=== PATIENT | male | born 1970 | race Caucasian/White ===

== ENCOUNTER 2018-01-18 10:13 | Inpatient (IN) | payer OTHER ==
[2018-01-18] MEDS ORDERED: DEXTROSE 50% 50 ML SYRINGE IV ×2 (11:30)
[2018-01-18] MEDS ORDERED: GLUCOSE GEL 15 GRAM TUBE PO ×2 (11:30)
[2018-01-18] MEDS ORDERED: GLUCOSE GEL 15 GRAM TUBE BUCCAL (11:30)
[2018-01-18] MEDS ORDERED: GLUCAGON 1 MG INJ IM (11:30)
[2018-01-18] MEDS: OXYCODONE/ACETAMINOPHEN (10/325) TAB PO (11:36)
[2018-01-18] MEDS: INSULIN GLARGINE [LANTus] (100 UNITS/ML) SYG SC ×2 (13:03→20:32)
[2018-01-18] MEDS: GABAPENTIN 100 MG CAP PO ×2 (13:50→20:23)
[2018-01-18] MEDS: INSULIN ASPART [NOVOLOG] 3 ML PEN SC ×3 (13:50→20:33)
[2018-01-18] MEDS: COLLAGENASE 5 GM (UD JAR) TOP (13:51)
[2018-01-18] MEDS: HYDROmorphONE 0.5 MG/0.5 ML SYG IV ×3 (13:57→20:16)
[2018-01-18 14:11] LABS: ADD MAN DIFF? NO
[2018-01-18 14:16] LABS: WHITE BLOOD COUNT 11.4 10^3/ul (4.8-10.8)
[2018-01-18 14:16] LABS: BASOPHIL # 0.1 10^3/ul (0.0-0.1); BASOPHILS % 0.9 % (0.0-2.0); EOSINOPHILS # 0.4 10^3/ul (0.0-0.5); EOSINOPHILS % 3.1 % (0.0-7.0); HEMOGLOBIN 15.8 g/dl (14.0-18.0); LYMPHOCYTES # 3.2 10^3/ul (0.8-2.9); LYMPHOCYTES % 27.7 % (15.0-51.0); MEAN CORPUSCULAR HEMOGLOBIN 29.9 pg (29.0-33.0); MEAN CORPUSCULAR HGB CONC 33.6 g/dl (32.0-37.0); MEAN CORPUSCULAR VOLUME 88.8 fl (82.0-101.0); MEAN PLATELET VOLUME 11.8 fl (7.4-10.4); MONOCYTE # 0.9 10^3/ul (0.3-0.9); MONOCYTES % 7.7 % (0.0-11.0); NEUTROPHIL # 6.8 10^3/ul (1.6-7.5); NEUTROPHILS % 60.1 % (39.0-77.0); PLATELET COUNT 311 10^3/UL (140-415); RED BLOOD COUNT 5.29 10^6/ul (4.70-6.10); RED CELL DISTRIBUTION WIDTH 12.6 % (11.5-14.5)
[2018-01-18] MEDS ORDERED: VANCOMYCIN IV PER PHARMACY XX (14:30)
[2018-01-18 14:31] LABS: ALANINE AMINOTRANSFERASE 60 IU/L (13-69); ALBUMIN 4.1 g/dl (3.3-4.9); ALKALINE PHOSPHATASE 91 IU/L (42-121); ANION GAP 15 (5-13); ASPARTATE AMINO TRANSFERASE 53 IU/L (15-46); BILIRUBIN,INDIRECT 0.3 mg/dl (0-1.1); BILIRUBIN,TOTAL 0.3 mg/dl (0.2-1.3); BLOOD UREA NITROGEN 17 mg/dl (7-20); CARBON DIOXIDE 25 mmol/L (21-31); CHLORIDE 98 mmol/L (97-110); CREATININE 1.07 mg/dl (0.61-1.24); Estimated GFR > 60 mL/min (>60); GLUCOSE 366 mg/dl (70-220); PHOSPHORUS 4.3 mg/dl (2.5-4.9); POTASSIUM 4.3 mmol/L (3.5-5.1); SODIUM 138 mmol/L (135-144); TOTAL PROTEIN 7.1 g/dl (6.1-8.1)
[2018-01-18 14:34] LABS: C-REACTIVE PROTEIN 1.6 mg/dl (0.0-0.9)
[2018-01-18 14:37] LABS: HEMOGLOBIN A1C 11.4 % (0-5.9)
[2018-01-18 15:20] LABS: ERYTHROCYTE SEDIMENTATION RATE 10 mm/Hr (0-15)
[2018-01-18] MEDS ORDERED: INSULIN ASPART [NOVOLOG] 3 ML PEN SC (18:05)
[2018-01-18] MEDS: DIPHENHYDRAMINE 50 MG CAP PO (18:26)
[2018-01-18] MEDS: VANCOMYCIN 2 GM in SOD CHLORIDE 0.9% 500 ML IVPB (18:26)
[2018-01-18] MEDS ORDERED: DIPHENHYDRAMINE 2%/ZINC 28.4 GM CR TOP (18:30)
[2018-01-18] MEDS: KETOROLAC 30 MG INJ IV (18:40)
[2018-01-18] MEDS: BENAZEPRIL 20 MG TAB PO (20:21)
[2018-01-18] MEDS: HYDROCHLOROTHIAZIDE 12.5 MG CAP PO (20:23)
[2018-01-18] MEDS: METOPROLOL 25 MG TAB PO (20:23)
[2018-01-18] MEDS: ATORVASTATIN 40 MG TAB PO (20:23)
[2018-01-18] MEDS: CEFEPIME 1GM/50 ML (PMX) 50 ML IVPB (20:30)
[2018-01-18] MEDS: DIPHENHYDRAMINE 50 MG INJ IV (21:08)
[2018-01-19] MEDS: HYDROmorphONE 0.5 MG/0.5 ML SYG IV ×6 (02:02→20:55)
[2018-01-19 05:15] LABS: ADD MAN DIFF? NO
[2018-01-19 05:19] LABS: WHITE BLOOD COUNT 11.3 10^3/ul (4.8-10.8)
[2018-01-19 05:19] LABS: BASOPHIL # 0.1 10^3/ul (0.0-0.1); BASOPHILS % 0.9 % (0.0-2.0); EOSINOPHILS # 0.5 10^3/ul (0.0-0.5); EOSINOPHILS % 4.3 % (0.0-7.0); HEMOGLOBIN 15.5 g/dl (14.0-18.0); LYMPHOCYTES # 2.4 10^3/ul (0.8-2.9); LYMPHOCYTES % 21.6 % (15.0-51.0); MEAN CORPUSCULAR HEMOGLOBIN 29.4 pg (29.0-33.0); MEAN CORPUSCULAR HGB CONC 32.3 g/dl (32.0-37.0); MEAN CORPUSCULAR VOLUME 91.1 fl (82.0-101.0); MEAN PLATELET VOLUME 11.5 fl (7.4-10.4); MONOCYTE # 0.9 10^3/ul (0.3-0.9); MONOCYTES % 8.2 % (0.0-11.0); NEUTROPHIL # 7.3 10^3/ul (1.6-7.5); NEUTROPHILS % 64.4 % (39.0-77.0); PLATELET COUNT 296 10^3/UL (140-415); RED BLOOD COUNT 5.27 10^6/ul (4.70-6.10); RED CELL DISTRIBUTION WIDTH 12.9 % (11.5-14.5)
[2018-01-19] MEDS: OXYCODONE/ACETAMINOPHEN (10/325) TAB PO ×2 (05:37→14:27)
[2018-01-19] MEDS: VANCOMYCIN 1.25 GM in SOD CHLORIDE 0.9% 250 ML IVPB ×2 (05:38→17:59)
[2018-01-19 05:39] LABS: ANION GAP 9 (5-13); BLOOD UREA NITROGEN 25 mg/dl (7-20); CALCIUM 9.2 mg/dl (8.4-10.2); CARBON DIOXIDE 27 mmol/L (21-31); CHLORIDE 103 mmol/L (97-110); CHOL/HDL RATIO 7.4 RATIO; CHOLESTEROL 179 mg/dl (100-200); CREATININE 1.18 mg/dl (0.61-1.24); Estimated GFR > 60 mL/min (>60); GLUCOSE 261 mg/dl (70-220); HDL CHOLESTEROL 24 mg/dl (27-67); LDL CHOLESTEROL,CALCULATED 102 mg/dl; POTASSIUM 5.1 mmol/L (3.5-5.1); SODIUM 139 mmol/L (135-144); TRIGLYCERIDES 264 mg/dl (0-149)
[2018-01-19] MEDS: DIPHENHYDRAMINE 50 MG INJ IV (07:39)
[2018-01-19] MEDS: INSULIN GLARGINE [LANTus] (100 UNITS/ML) SYG SC ×2 (08:16→20:58)
[2018-01-19] MEDS: INSULIN ASPART [NOVOLOG] 3 ML PEN SC ×6 (08:16→20:59)
[2018-01-19] MEDS: HYDROCHLOROTHIAZIDE 12.5 MG CAP PO ×2 (09:29→20:56)
[2018-01-19] MEDS: ASCORBIC ACID 500 MG TAB PO (09:29)
[2018-01-19] MEDS: GABAPENTIN 100 MG CAP PO ×3 (09:29→21:02)
[2018-01-19] MEDS: CELECOXIB 200 MG CAP PO (09:29)
[2018-01-19] MEDS: BENAZEPRIL 20 MG TAB PO ×2 (09:29→20:56)
[2018-01-19] MEDS: AMLODIPINE 5 MG TAB PO (09:30)
[2018-01-19] MEDS: ASPIRIN (EC) 81 MG TAB PO (09:30)
[2018-01-19] MEDS: METOPROLOL 25 MG TAB PO ×2 (09:30→20:57)
[2018-01-19] MEDS: ZINC SULFATE 220 MG CAP PO (09:30)
[2018-01-19] MEDS: SODIUM HYPOCHLORITE (1/40) 1 APPLIC BTL IRR (09:31)
[2018-01-19] MEDS: COLLAGENASE 5 GM (UD JAR) TOP (09:31)
[2018-01-19] MEDS: CEFEPIME 1GM/50 ML (PMX) 50 ML IVPB ×2 (10:31→20:54)
[2018-01-19] MEDS: ACCU-CHEK XX ×3 (11:01→21:00)
[2018-01-19] MEDS: LINAGLIPTIN 5 MG TABLET PO (11:37)
[2018-01-19] MEDS: LIDOCAINE 4% CR TOP (15:45)
[2018-01-19] MEDS: CYCLOBENZAPRINE 10 MG TAB PO (19:37)
[2018-01-19] MEDS: ATORVASTATIN 40 MG TAB PO (20:56)
[2018-01-19] MEDS: ATORVASTATIN 20 MG TAB PO (21:01)
[2018-01-20] MEDS: ACCU-CHEK XX ×4 (00:15→17:00)
[2018-01-20] MEDS: INSULIN GLARGINE [LANTus] (100 UNITS/ML) SYG SC ×2 (00:15→08:11)
[2018-01-20] MEDS: DEXTROSE 5%-0.45% NACL 1,000 ML IV (01:24)
[2018-01-20] MEDS: HYDROmorphONE 0.5 MG/0.5 ML SYG IV ×5 (01:25→17:58)
[2018-01-20] MEDS: INSULIN ASPART [NOVOLOG] 3 ML PEN SC ×8 (01:27→16:59)
[2018-01-20 05:07] LABS: ADD MAN DIFF? NO
[2018-01-20 05:14] LABS: BASOPHIL # 0.1 10^3/ul (0.0-0.1); BASOPHILS % 0.9 % (0.0-2.0); EOSINOPHILS # 0.4 10^3/ul (0.0-0.5); EOSINOPHILS % 4.4 % (0.0-7.0); HEMATOCRIT 46.4 % (42.0-52.0); HEMOGLOBIN 15.2 g/dl (14.0-18.0); LYMPHOCYTES # 2.5 10^3/ul (0.8-2.9); LYMPHOCYTES % 25.5 % (15.0-51.0); MEAN CORPUSCULAR HEMOGLOBIN 29.3 pg (29.0-33.0); MEAN CORPUSCULAR HGB CONC 32.8 g/dl (32.0-37.0); MEAN CORPUSCULAR VOLUME 89.6 fl (82.0-101.0); MEAN PLATELET VOLUME 11.3 fl (7.4-10.4); MONOCYTE # 0.7 10^3/ul (0.3-0.9); MONOCYTES % 7.5 % (0.0-11.0); NEUTROPHILS % 61.2 % (39.0-77.0); PLATELET COUNT 286 10^3/UL (140-415); RED BLOOD COUNT 5.18 10^6/ul (4.70-6.10); RED CELL DISTRIBUTION WIDTH 12.8 % (11.5-14.5)
[2018-01-20 05:14] LABS: WHITE BLOOD COUNT 9.9 10^3/ul (4.8-10.8)
[2018-01-20 05:28] LABS: ANION GAP 9 (5-13); BLOOD UREA NITROGEN 25 mg/dl (7-20); CALCIUM 8.9 mg/dl (8.4-10.2); CARBON DIOXIDE 24 mmol/L (21-31); CHLORIDE 103 mmol/L (97-110); CREATININE 1.03 mg/dl (0.61-1.24); Estimated GFR > 60 mL/min (>60); GLUCOSE 325 mg/dl (70-220); POTASSIUM 4.5 mmol/L (3.5-5.1); SODIUM 136 mmol/L (135-144)
[2018-01-20] MEDS: VANCOMYCIN 1.25 GM in SOD CHLORIDE 0.9% 250 ML IVPB ×2 (05:40→18:15)
[2018-01-20] MEDS: SOD CHLORIDE 0.9% 1,000 ML IV ×3 (07:10→19:25)
[2018-01-20] MEDS: ASPIRIN (EC) 81 MG TAB PO (08:12)
[2018-01-20] MEDS: GABAPENTIN 300 MG CAP PO ×2 (08:12→12:43)
[2018-01-20] MEDS: ZINC SULFATE 220 MG CAP PO (08:13)
[2018-01-20] MEDS: LINAGLIPTIN 5 MG TABLET PO (08:13)
[2018-01-20] MEDS: CELECOXIB 200 MG CAP PO (08:13)
[2018-01-20] MEDS: ASCORBIC ACID 500 MG TAB PO (08:13)
[2018-01-20] MEDS: OXYCODONE/ACETAMINOPHEN (10/325) TAB PO ×2 (08:13→16:15)
[2018-01-20] MEDS: HYDROCHLOROTHIAZIDE 12.5 MG CAP PO (08:14)
[2018-01-20] MEDS: BENAZEPRIL 20 MG TAB PO (08:14)
[2018-01-20] MEDS: METOPROLOL 25 MG TAB PO (08:15)
[2018-01-20] MEDS: AMLODIPINE 5 MG TAB PO (08:15)
[2018-01-20] MEDS ORDERED: GABAPENTIN 100 MG CAP PO (09:00)
[2018-01-20] MEDS ORDERED: INSULIN GLARGINE [LANTus] (100 UNITS/ML) SYG SC (09:00)
[2018-01-20] MEDS: CEFEPIME 1GM/50 ML (PMX) 50 ML IVPB (09:43)
[2018-01-20] MEDS: SODIUM HYPOCHLORITE (1/40) 1 APPLIC BTL IRR (09:44)
[2018-01-20] MEDS: COLLAGENASE 5 GM (UD JAR) TOP (09:44)
[2018-01-20 17:52] LABS: VANCOMYCIN,TROUGH 11.1 ug/ml (10.0-20.0)
[2018-01-20] MEDS: DIPHENHYDRAMINE 50 MG INJ IV (18:03)
[2018-01-20] MEDS ORDERED: METOCLOPRAMIDE 10 MG INJ (21:37)
[2018-01-20] MEDS ORDERED: ROPIVACAINE 0.5 % 30 ML VIAL (21:37)
[2018-01-20] MEDS ORDERED: ONDANSETRON 4 MG INJ (21:37)
[2018-01-20] MEDS ORDERED: MIDAZOLAM 1 MG/ML 2 ML INJ (21:37)
[2018-01-20] MEDS ORDERED: DIPHENHYDRAMINE 50 MG INJ IV (22:00)
[2018-01-20] MEDS ORDERED: HYDROmorphONE 1 MG/5 ML IV SYRINGE IV ×2 (22:00)
[2018-01-20] MEDS ORDERED: LABETALOL HCL 20MG INJ IV (22:00)
[2018-01-20] MEDS ORDERED: MEPERIDINE 25 MG INJ IV (22:00)
[2018-01-20] MEDS ORDERED: hydrALAzine 20 MG INJ IV (22:00)
[2018-01-20] MEDS: ONDANSETRON 4 MG INJ IV (23:20)
[2018-01-20] MEDS: HYDROmorphONE 1 MG/5 ML IV SYRINGE IV (23:21)
[2018-01-21] MEDS: CEFEPIME 1GM/50 ML (PMX) 50 ML IVPB ×3 (00:29→22:04)
[2018-01-21] MEDS: ATORVASTATIN 40 MG TAB PO (00:31)
[2018-01-21] MEDS: GABAPENTIN 300 MG CAP PO ×4 (00:31→21:04)
[2018-01-21] MEDS: BENAZEPRIL 20 MG TAB PO ×2 (00:31→08:22)
[2018-01-21] MEDS: METOPROLOL 25 MG TAB PO ×3 (00:31→21:11)
[2018-01-21] MEDS: ATORVASTATIN 20 MG TAB PO (00:32)
[2018-01-21] MEDS: ACCU-CHEK XX ×5 (02:00→21:00)
[2018-01-21] MEDS: HYDROmorphONE 0.5 MG/0.5 ML SYG IV ×2 (03:44→07:41)
[2018-01-21] MEDS: VANCOMYCIN 1.25 GM in SOD CHLORIDE 0.9% 250 ML IVPB ×2 (05:17→17:36)
[2018-01-21 05:22] LABS: ADD MAN DIFF? NO
[2018-01-21 05:25] LABS: WHITE BLOOD COUNT 13.2 10^3/ul (4.8-10.8)
[2018-01-21 05:25] LABS: BASOPHIL # 0.1 10^3/ul (0.0-0.1); BASOPHILS % 0.9 % (0.0-2.0); EOSINOPHILS # 0.5 10^3/ul (0.0-0.5); EOSINOPHILS % 3.7 % (0.0-7.0); HEMATOCRIT 47.9 % (42.0-52.0); HEMOGLOBIN 15.4 g/dl (14.0-18.0); LYMPHOCYTES # 2.8 10^3/ul (0.8-2.9); LYMPHOCYTES % 21.5 % (15.0-51.0); MEAN CORPUSCULAR HEMOGLOBIN 29.5 pg (29.0-33.0); MEAN CORPUSCULAR HGB CONC 32.2 g/dl (32.0-37.0); MEAN CORPUSCULAR VOLUME 91.8 fl (82.0-101.0); MEAN PLATELET VOLUME 11.5 fl (7.4-10.4); MONOCYTE # 1.1 10^3/ul (0.3-0.9); MONOCYTES % 8.5 % (0.0-11.0); NEUTROPHIL # 8.6 10^3/ul (1.6-7.5); NEUTROPHILS % 64.9 % (39.0-77.0); PLATELET COUNT 292 10^3/UL (140-415); RED BLOOD COUNT 5.22 10^6/ul (4.70-6.10); RED CELL DISTRIBUTION WIDTH 13.1 % (11.5-14.5)
[2018-01-21] MEDS: OXYCODONE/ACETAMINOPHEN (10/325) TAB PO ×2 (05:36→11:15)
[2018-01-21 05:46] LABS: ANION GAP 8 (5-13); BLOOD UREA NITROGEN 19 mg/dl (7-20); CALCIUM 8.7 mg/dl (8.4-10.2); CARBON DIOXIDE 26 mmol/L (21-31); CHLORIDE 106 mmol/L (97-110); CREATININE 1.08 mg/dl (0.61-1.24); Estimated GFR > 60 mL/min (>60); GLUCOSE 135 mg/dl (70-220); POTASSIUM 4.3 mmol/L (3.5-5.1); SODIUM 140 mmol/L (135-144)
[2018-01-21] MEDS: INSULIN ASPART [NOVOLOG] 3 ML PEN SC ×7 (08:01→20:55)
[2018-01-21] MEDS: CELECOXIB 200 MG CAP PO (08:05)
[2018-01-21] MEDS: COLLAGENASE 5 GM (UD JAR) TOP (08:06)
[2018-01-21] MEDS: ASPIRIN (EC) 81 MG TAB PO (08:09)
[2018-01-21] MEDS: ASCORBIC ACID 500 MG TAB PO (08:10)
[2018-01-21] MEDS: LINAGLIPTIN 5 MG TABLET PO (08:16)
[2018-01-21] MEDS: ZINC SULFATE 220 MG CAP PO (08:16)
[2018-01-21] MEDS: AMLODIPINE 5 MG TAB PO (08:25)
[2018-01-21] MEDS: HYDROCHLOROTHIAZIDE 12.5 MG CAP PO (08:26)
[2018-01-21] MEDS: INSULIN GLARGINE [LANTus] (100 UNITS/ML) SYG SC ×2 (08:28→20:56)
[2018-01-21] MEDS: SODIUM HYPOCHLORITE (1/40) 1 APPLIC BTL IRR (08:40)
[2018-01-21] MEDS: DIPHENHYDRAMINE 50 MG INJ IV ×3 (08:46→22:43)
[2018-01-21] MEDS: SOD CHLORIDE 0.9% 1,000 ML IV ×2 (09:10→22:30)
[2018-01-21 11:31] LABS: PROCALCITONIN 0.22 ng/mL (<0.10)
[2018-01-21] MEDS: HYDROmorphONE 1 MG/ML SYG IV ×3 (12:18→21:36)
[2018-01-21 15:06] LABS: HEPATITIS B SURFACE ANTIGEN NEGATIVE (NEGATIVE)
[2018-01-21] MEDS: KETOROLAC 30 MG INJ IV ×2 (15:11→22:26)
[2018-01-21] MEDS: LIDOCAINE 5% PATCH TD (15:11)
[2018-01-21 15:23] LABS: HEPATITIS C VIRAL ANTIBODY NEGATIVE (NEGATIVE)
[2018-01-21] MEDS: ATORVASTATIN 80 MG TAB PO (21:04)
[2018-01-21] MEDS: DOXAZOSIN 2 MG TAB PO (21:12)
[2018-01-21] MEDS: BENAZEPRIL 40 MG TAB PO (21:14)
[2018-01-22] MEDS: HYDROmorphONE 1 MG/ML SYG IV ×5 (01:55→22:32)
[2018-01-22] MEDS: ACCU-CHEK XX ×5 (01:59→21:00)
[2018-01-22] MEDS: VANCOMYCIN 1.25 GM in SOD CHLORIDE 0.9% 250 ML IVPB ×2 (05:29→17:31)
[2018-01-22] MEDS: SOD CHLORIDE 0.9% 1,000 ML IV (06:18)
[2018-01-22] MEDS: DIPHENHYDRAMINE 50 MG INJ IV ×2 (08:21→20:45)
[2018-01-22] MEDS: OXYCODONE/ACETAMINOPHEN (10/325) TAB PO (08:22)
[2018-01-22] MEDS: INSULIN ASPART [NOVOLOG] 3 ML PEN SC ×7 (08:33→21:00)
[2018-01-22] MEDS: COLLAGENASE 5 GM (UD JAR) TOP (09:00)
[2018-01-22] MEDS: LIDOCAINE 5% PATCH TD ×2 (09:00→10:09)
[2018-01-22] MEDS ORDERED: AMLODIPINE 5 MG TAB PO (09:00)
[2018-01-22] MEDS: SODIUM HYPOCHLORITE (1/40) 1 APPLIC BTL IRR (09:00)
[2018-01-22] MEDS: CEFEPIME 1GM/50 ML (PMX) 50 ML IVPB ×2 (10:06→22:33)
[2018-01-22] MEDS: ASPIRIN (EC) 81 MG TAB PO (10:06)
[2018-01-22] MEDS: CELECOXIB 200 MG CAP PO (10:06)
[2018-01-22] MEDS: METOPROLOL 25 MG TAB PO ×2 (10:07→22:35)
[2018-01-22] MEDS: HYDROCHLOROTHIAZIDE 12.5 MG CAP PO (10:07)
[2018-01-22] MEDS: LINAGLIPTIN 5 MG TABLET PO (10:08)
[2018-01-22] MEDS: GABAPENTIN 300 MG CAP PO ×3 (10:08→22:34)
[2018-01-22] MEDS: ASCORBIC ACID 500 MG TAB PO (10:09)
[2018-01-22] MEDS: ZINC SULFATE 220 MG CAP PO (10:09)
[2018-01-22] MEDS: BENAZEPRIL 40 MG TAB PO ×2 (10:11→22:35)
[2018-01-22] MEDS: INSULIN GLARGINE [LANTus] (100 UNITS/ML) SYG SC ×2 (10:12→22:34)
[2018-01-22] MEDS: metFORMIN 500 MG TAB PO ×2 (10:28→17:32)
[2018-01-22] MEDS: KETOROLAC 30 MG INJ IV ×2 (11:59→20:32)
[2018-01-22 19:24] LABS: GLUCOSE 178 mg/dl (70-220)
[2018-01-22] MEDS: ATORVASTATIN 80 MG TAB PO (22:33)
[2018-01-22] MEDS: DOXAZOSIN 4 MG TAB PO (22:34)
[2018-01-22] MEDS: ONDANSETRON 4 MG INJ IV (22:35)
[2018-01-23] MEDS: SOD CHLORIDE 0.9% 1,000 ML IV ×2 (01:10→14:12)
[2018-01-23] MEDS: OXYCODONE/ACETAMINOPHEN (10/325) TAB PO ×2 (01:17→11:36)
[2018-01-23] MEDS: ACCU-CHEK XX ×5 (01:59→21:00)
[2018-01-23] MEDS: HYDROmorphONE 1 MG/ML SYG IV ×4 (04:44→20:38)
[2018-01-23] MEDS: VANCOMYCIN 1.25 GM in SOD CHLORIDE 0.9% 250 ML IVPB (05:18)
[2018-01-23] MEDS: DIPHENHYDRAMINE 50 MG INJ IV ×3 (05:18→17:16)
[2018-01-23] MEDS: KETOROLAC 30 MG INJ IV (07:46)
[2018-01-23] MEDS: ASCORBIC ACID 500 MG TAB PO (08:16)
[2018-01-23] MEDS: LINAGLIPTIN 5 MG TABLET PO (08:16)
[2018-01-23] MEDS: ZINC SULFATE 220 MG CAP PO (08:16)
[2018-01-23] MEDS: ASPIRIN (EC) 81 MG TAB PO (08:16)
[2018-01-23] MEDS: HYDROCHLOROTHIAZIDE 12.5 MG CAP PO (08:17)
[2018-01-23] MEDS: METOPROLOL 25 MG TAB PO ×2 (08:17→20:35)
[2018-01-23] MEDS: GABAPENTIN 300 MG CAP PO ×3 (08:17→20:36)
[2018-01-23] MEDS: BENAZEPRIL 40 MG TAB PO (08:17)
[2018-01-23] MEDS: metFORMIN 500 MG TAB PO (08:17)
[2018-01-23] MEDS: INSULIN GLARGINE [LANTus] (100 UNITS/ML) SYG SC ×2 (08:18→20:37)
[2018-01-23] MEDS: INSULIN ASPART [NOVOLOG] 3 ML PEN SC ×7 (08:19→20:50)
[2018-01-23] MEDS: LIDOCAINE 5% PATCH TD (08:24)
[2018-01-23] MEDS: CELECOXIB 200 MG CAP PO (08:36)
[2018-01-23] MEDS: SODIUM HYPOCHLORITE (1/40) 1 APPLIC BTL IRR (09:00)
[2018-01-23] MEDS: COLLAGENASE 5 GM (UD JAR) TOP (09:00)
[2018-01-23] MEDS: CEFEPIME 1GM/50 ML (PMX) 50 ML IVPB (09:29)
[2018-01-23 10:49] LABS: BLOOD UREA NITROGEN 22 mg/dl (7-20)
[2018-01-23 10:49] LABS: CREATININE 1.27 mg/dl (0.61-1.24)
[2018-01-23] MEDS ORDERED: hydrALAzine 20 MG INJ IV (13:00)
[2018-01-23 13:25] LABS: ANION GAP 5 (5-13); BLOOD UREA NITROGEN 23 mg/dl (7-20); CALCIUM 8.9 mg/dl (8.4-10.2); CARBON DIOXIDE 27 mmol/L (21-31); CHLORIDE 103 mmol/L (97-110); CREATININE 1.27 mg/dl (0.61-1.24); Estimated GFR > 60 mL/min (>60); GLUCOSE 262 mg/dl (70-220); POTASSIUM 4.9 mmol/L (3.5-5.1); SODIUM 135 mmol/L (135-144)
[2018-01-23] MEDS: ACETAMINOPHEN 325 MG TAB PO ×2 (14:17→18:15)
[2018-01-23] MEDS: CEFTRIAXONE 2 GM/50 ML (PMX) 50 ML IVPB (16:15)
[2018-01-23] MEDS: SOD CHLORIDE 0.9% IVPB (17:09)
[2018-01-23] MEDS: DAPTOMYCIN IVPB (17:09)
[2018-01-23] MEDS: DOXAZOSIN 4 MG TAB PO (20:34)
[2018-01-23] MEDS ORDERED: METOPROLOL 25 MG TAB PO (21:00)
[2018-01-23] MEDS: oxyCODONE 5 MG TAB PO (23:35)
[2018-01-24] MEDS: SOD CHLORIDE 0.9% 1,000 ML IV (00:02)
[2018-01-24] MEDS: DIPHENHYDRAMINE 50 MG INJ IV ×3 (00:33→20:31)
[2018-01-24] MEDS: ZOLPIDEM 5 MG TAB PO (01:55)
[2018-01-24] MEDS: ACETAMINOPHEN 325 MG TAB PO ×4 (01:59→20:18)
[2018-01-24] MEDS: ACCU-CHEK XX ×5 (02:00→21:34)
[2018-01-24] MEDS ORDERED: BENZOCAINE 10% 7 GM GEL MM (07:00)
[2018-01-24] MEDS: GABAPENTIN 300 MG CAP PO ×3 (08:39→20:19)
[2018-01-24] MEDS: ASPIRIN (EC) 81 MG TAB PO (08:39)
[2018-01-24] MEDS: BENZOCAINE 20% 0.33 OZ. GEL MT ×3 (08:39→20:21)
[2018-01-24] MEDS: METOPROLOL 25 MG TAB PO ×2 (08:41→20:20)
[2018-01-24] MEDS: oxyCODONE 5 MG TAB PO ×2 (08:41→16:17)
[2018-01-24] MEDS: ASCORBIC ACID 500 MG TAB PO (08:41)
[2018-01-24] MEDS: ZINC SULFATE 220 MG CAP PO (08:41)
[2018-01-24] MEDS: LINAGLIPTIN 5 MG TABLET PO (08:42)
[2018-01-24] MEDS: INSULIN GLARGINE [LANTus] (100 UNITS/ML) SYG SC ×2 (08:44→20:24)
[2018-01-24] MEDS: INSULIN ASPART [NOVOLOG] 3 ML PEN SC ×7 (08:48→20:24)
[2018-01-24] MEDS: ENOXAPARIN 30 MG/0.3 ML SYG SC (08:50)
[2018-01-24] MEDS: LIDOCAINE 5% PATCH TD (09:00)
[2018-01-24] MEDS: COLLAGENASE 5 GM (UD JAR) TOP (09:00)
[2018-01-24] MEDS: SODIUM HYPOCHLORITE (1/40) 1 APPLIC BTL IRR (09:00)
[2018-01-24 10:16] LABS: ADD MAN DIFF? NO
[2018-01-24 10:20] LABS: BASOPHIL # 0.1 10^3/ul (0.0-0.1); BASOPHILS % 0.6 % (0.0-2.0); EOSINOPHILS # 0.6 10^3/ul (0.0-0.5); EOSINOPHILS % 5.4 % (0.0-7.0); HEMATOCRIT 43.3 % (42.0-52.0); LYMPHOCYTES % 18.1 % (15.0-51.0); MEAN CORPUSCULAR HEMOGLOBIN 29.7 pg (29.0-33.0); MEAN CORPUSCULAR HGB CONC 32.3 g/dl (32.0-37.0); MEAN CORPUSCULAR VOLUME 91.7 fl (82.0-101.0); MEAN PLATELET VOLUME 11.6 fl (7.4-10.4); MONOCYTE # 0.8 10^3/ul (0.3-0.9); MONOCYTES % 7.3 % (0.0-11.0); NEUTROPHIL # 7.5 10^3/ul (1.6-7.5); NEUTROPHILS % 68.3 % (39.0-77.0); PLATELET COUNT 249 10^3/UL (140-415); RED BLOOD COUNT 4.72 10^6/ul (4.70-6.10); RED CELL DISTRIBUTION WIDTH 12.4 % (11.5-14.5)
[2018-01-24 11:02] LABS: ANION GAP 9 (5-13); BLOOD UREA NITROGEN 17 mg/dl (7-20); CALCIUM 8.6 mg/dl (8.4-10.2); CARBON DIOXIDE 26 mmol/L (21-31); CHLORIDE 102 mmol/L (97-110); CREATININE 0.94 mg/dl (0.61-1.24); Estimated GFR > 60 mL/min (>60); GLUCOSE 242 mg/dl (70-220); MAGNESIUM 1.5 mg/dl (1.7-2.5); POTASSIUM 4.5 mmol/L (3.5-5.1); SODIUM 137 mmol/L (135-144)
[2018-01-24] MEDS: LIDOCAINE 1% (MPF) 5 ML VIAL SC ×2 (12:30→14:00)
[2018-01-24] MEDS ORDERED: INSULIN GLARGINE [LANTus] (100 UNITS/ML) SYG SC (12:30)
[2018-01-24] MEDS: LISINOPRIL 20 MG TAB PO (13:28)
[2018-01-24] MEDS: MAGNESIUM SULFATE 2 GM/50 ML 50 ML IVPB (13:29)
[2018-01-24] MEDS: HYDROmorphONE 1 MG/ML SYG IV ×2 (14:30→19:38)
[2018-01-24] MEDS: SOD CHLORIDE 0.9% IVPB (18:11)
[2018-01-24] MEDS: DAPTOMYCIN IVPB (18:11)
[2018-01-24] MEDS: DOXAZOSIN 4 MG TAB PO (21:33)
[2018-01-25] MEDS: ACETAMINOPHEN 325 MG TAB PO ×5 (01:00→19:00)
[2018-01-25] MEDS: HYDROmorphONE 1 MG/ML SYG IV (02:01)
[2018-01-25] MEDS: ACCU-CHEK XX ×5 (02:14→20:44)
[2018-01-25] MEDS: DIPHENHYDRAMINE 50 MG INJ IV (03:33)
[2018-01-25 05:42] LABS: ADD MAN DIFF? NO
[2018-01-25 05:52] LABS: WHITE BLOOD COUNT 10.3 10^3/ul (4.8-10.8)
[2018-01-25 05:52] LABS: BASOPHIL # 0.1 10^3/ul (0.0-0.1); BASOPHILS % 0.7 % (0.0-2.0); EOSINOPHILS # 0.5 10^3/ul (0.0-0.5); EOSINOPHILS % 4.7 % (0.0-7.0); HEMATOCRIT 40.9 % (42.0-52.0); HEMOGLOBIN 13.3 g/dl (14.0-18.0); LYMPHOCYTES # 2.2 10^3/ul (0.8-2.9); LYMPHOCYTES % 21.6 % (15.0-51.0); MEAN CORPUSCULAR HEMOGLOBIN 29.9 pg (29.0-33.0); MEAN CORPUSCULAR HGB CONC 32.5 g/dl (32.0-37.0); MEAN CORPUSCULAR VOLUME 91.9 fl (82.0-101.0); MEAN PLATELET VOLUME 11.5 fl (7.4-10.4); MONOCYTE # 0.9 10^3/ul (0.3-0.9); MONOCYTES % 8.4 % (0.0-11.0); NEUTROPHIL # 6.6 10^3/ul (1.6-7.5); NEUTROPHILS % 64.2 % (39.0-77.0); PLATELET COUNT 248 10^3/UL (140-415); RED BLOOD COUNT 4.45 10^6/ul (4.70-6.10); RED CELL DISTRIBUTION WIDTH 12.5 % (11.5-14.5)
[2018-01-25 06:08] LABS: MAGNESIUM 1.6 mg/dl (1.7-2.5)
[2018-01-25 06:09] LABS: ANION GAP 6 (5-13); BLOOD UREA NITROGEN 13 mg/dl (7-20); CALCIUM 8.5 mg/dl (8.4-10.2); CARBON DIOXIDE 28 mmol/L (21-31); CHLORIDE 108 mmol/L (97-110); Estimated GFR > 60 mL/min (>60); GLUCOSE 107 mg/dl (70-220); SODIUM 142 mmol/L (135-144)
[2018-01-25 06:31] LABS: CREATINE KINASE 97 IU/L (23-200)
[2018-01-25] MEDS: INSULIN ASPART [NOVOLOG] 3 ML PEN SC ×7 (07:35→20:44)
[2018-01-25] MEDS: SODIUM HYPOCHLORITE (1/40) 1 APPLIC BTL IRR (08:36)
[2018-01-25] MEDS: ZINC SULFATE 220 MG CAP PO (08:51)
[2018-01-25] MEDS: METOPROLOL 25 MG TAB PO ×2 (08:52→20:43)
[2018-01-25] MEDS: GABAPENTIN 300 MG CAP PO ×3 (08:52→13:00)
[2018-01-25] MEDS: LISINOPRIL 20 MG TAB PO (08:53)
[2018-01-25] MEDS: LINAGLIPTIN 5 MG TABLET PO (08:55)
[2018-01-25] MEDS: ASCORBIC ACID 500 MG TAB PO (08:55)
[2018-01-25] MEDS: ENOXAPARIN 40 MG/0.4 ML SYG SC (09:00)
[2018-01-25] MEDS: LIDOCAINE 5% PATCH TD (09:00)
[2018-01-25] MEDS: COLLAGENASE 5 GM (UD JAR) TOP (09:00)
[2018-01-25] MEDS: BENZOCAINE 20% 0.33 OZ. GEL MT ×3 (09:03→20:43)
[2018-01-25] MEDS: INSULIN GLARGINE [LANTus] (100 UNITS/ML) SYG SC ×2 (09:07→20:43)
[2018-01-25] MEDS: ASPIRIN (EC) 81 MG TAB PO (09:08)
[2018-01-25 15:15] LABS: TROPONIN-I 0.013 ng/ml (0.000-0.120)
[2018-01-25] MEDS: SOD CHLORIDE 0.9% IVPB (15:53)
[2018-01-25] MEDS: DAPTOMYCIN IVPB (15:53)
[2018-01-25] MEDS: FUROSEMIDE 40 MG INJ IV (15:53)
[2018-01-25] MEDS: MAGNESIUM SULFATE 2 GM/50 ML 50 ML IVPB (17:32)
[2018-01-25] MEDS: GABAPENTIN 100 MG CAP PO (20:43)
[2018-01-26] MEDS: ACETAMINOPHEN 325 MG TAB PO ×4 (01:00→19:45)
[2018-01-26] MEDS: ACCU-CHEK XX ×5 (02:00→20:55)
[2018-01-26] MEDS: INSULIN ASPART [NOVOLOG] 3 ML PEN SC ×7 (07:35→20:55)
[2018-01-26] MEDS: SODIUM HYPOCHLORITE (1/40) 1 APPLIC BTL IRR (08:45)
[2018-01-26] MEDS: INSULIN GLARGINE [LANTus] (100 UNITS/ML) SYG SC ×2 (08:45→20:50)
[2018-01-26] MEDS: COLLAGENASE 5 GM (UD JAR) TOP (08:45)
[2018-01-26] MEDS: METOPROLOL 25 MG TAB PO ×2 (08:51→21:07)
[2018-01-26] MEDS: BENZOCAINE 20% 0.33 OZ. GEL MT ×3 (08:51→21:00)
[2018-01-26] MEDS: ASPIRIN (EC) 81 MG TAB PO (08:51)
[2018-01-26] MEDS: LISINOPRIL 20 MG TAB PO (08:52)
[2018-01-26] MEDS: GABAPENTIN 100 MG CAP PO ×3 (08:52→21:00)
[2018-01-26] MEDS: ENOXAPARIN 40 MG/0.4 ML SYG SC (08:52)
[2018-01-26] MEDS: ASCORBIC ACID 500 MG TAB PO (08:52)
[2018-01-26] MEDS: LINAGLIPTIN 5 MG TABLET PO (08:52)
[2018-01-26] MEDS: ZINC SULFATE 220 MG CAP PO (08:52)
[2018-01-26] MEDS: LIDOCAINE 5% PATCH TD (08:52)
[2018-01-26 10:47] LABS: ADD MAN DIFF? NO
[2018-01-26 10:51] LABS: BASOPHIL # 0.1 10^3/ul (0.0-0.1); BASOPHILS % 0.5 % (0.0-2.0); EOSINOPHILS # 0.2 10^3/ul (0.0-0.5); EOSINOPHILS % 1.8 % (0.0-7.0); HEMATOCRIT 43.6 % (42.0-52.0); HEMOGLOBIN 14.3 g/dl (14.0-18.0); LYMPHOCYTES # 1.7 10^3/ul (0.8-2.9); LYMPHOCYTES % 14.2 % (15.0-51.0); MEAN CORPUSCULAR HEMOGLOBIN 29.8 pg (29.0-33.0); MEAN CORPUSCULAR HGB CONC 32.8 g/dl (32.0-37.0); MEAN CORPUSCULAR VOLUME 90.8 fl (82.0-101.0); MEAN PLATELET VOLUME 11.2 fl (7.4-10.4); MONOCYTE # 0.7 10^3/ul (0.3-0.9); MONOCYTES % 6.1 % (0.0-11.0); NEUTROPHIL # 9.2 10^3/ul (1.6-7.5); NEUTROPHILS % 76.5 % (39.0-77.0); PLATELET COUNT 268 10^3/UL (140-415); RED CELL DISTRIBUTION WIDTH 12.8 % (11.5-14.5)
[2018-01-26 11:16] LABS: ANION GAP 8 (5-13); BLOOD UREA NITROGEN 12 mg/dl (7-20); CARBON DIOXIDE 26 mmol/L (21-31); CHLORIDE 104 mmol/L (97-110); CREATININE 0.87 mg/dl (0.61-1.24); Estimated GFR > 60 mL/min (>60); GLUCOSE 224 mg/dl (70-220); POTASSIUM 4.3 mmol/L (3.5-5.1); SODIUM 138 mmol/L (135-144)
[2018-01-26] MEDS: DAPTOMYCIN IVPB (14:48)
[2018-01-26] MEDS: SOD CHLORIDE 0.9% IVPB (14:48)
[2018-01-27] MEDS: ACETAMINOPHEN 325 MG TAB PO ×2 (01:00→06:32)
[2018-01-27] MEDS: ACCU-CHEK XX ×3 (01:42→11:30)
[2018-01-27] MEDS: INSULIN ASPART [NOVOLOG] 3 ML PEN SC ×4 (07:35→12:00)
[2018-01-27] MEDS: ASPIRIN (EC) 81 MG TAB PO (09:00)
[2018-01-27] MEDS: ENOXAPARIN 40 MG/0.4 ML SYG SC (09:00)
[2018-01-27] MEDS: ASCORBIC ACID 500 MG TAB PO (09:00)
[2018-01-27] MEDS: GABAPENTIN 100 MG CAP PO (09:00)
[2018-01-27] MEDS: LINAGLIPTIN 5 MG TABLET PO (09:00)
[2018-01-27] MEDS: COLLAGENASE 5 GM (UD JAR) TOP (09:00)
[2018-01-27] MEDS: LIDOCAINE 5% PATCH TD (09:00)
[2018-01-27] MEDS: BENZOCAINE 20% 0.33 OZ. GEL MT (09:00)
[2018-01-27] MEDS: ZINC SULFATE 220 MG CAP PO (09:00)
[2018-01-27] MEDS: INSULIN GLARGINE [LANTus] (100 UNITS/ML) SYG SC (09:00)
[2018-01-27] MEDS: LISINOPRIL 20 MG TAB PO (09:00)
[2018-01-27] MEDS: SODIUM HYPOCHLORITE (1/40) 1 APPLIC BTL IRR (09:00)
[2018-01-27] MEDS: METOPROLOL 25 MG TAB PO (09:00)
[2018-02-06] MEDS ORDERED: ATORVASTATIN 80 MG TAB PO (21:00)
[2018-02-06] MEDS ORDERED: ATORVASTATIN 20 MG TAB PO (21:00)
== END 2018-01-27 12:20 | disposition home health service (06) | DRG 982 ==
LOC: PP2 10:13
PROVIDERS: Family Medicine
PROC: 0HRKXK3 Replacement of Right Lower Leg Skin with Nonautologous Tissue Substitute, Full Thickness, External Approach (ICD-10-PCS; principal; 2018-01-20 21:46)
PROC: 0MBQ0ZZ Excision of Right Ankle Bursa and Ligament, Open Approach (ICD-10-PCS; 2018-01-20 21:46)
PROC: 02H633Z Insertion of Infusion Device into Right Atrium, Percutaneous Approach (ICD-10-PCS; 2018-01-20 21:46)
DX: E11.622 Type 2 diabetes mellitus with other skin ulcer (principal); L03.115 Cellulitis of right lower limb; L97.319 Non-pressure chronic ulcer of right ankle with unspecified severity; Z68.41 Body mass index [BMI] 40.0-44.9, adult; R65.10 Systemic inflammatory response syndrome (SIRS) of non-infectious origin without acute organ dysfunction; I42.9 Cardiomyopathy, unspecified; E66.01 Morbid (severe) obesity due to excess calories; E11.42 Type 2 diabetes mellitus with diabetic polyneuropathy; E78.5 Hyperlipidemia, unspecified; G89.29 Other chronic pain; I10 Essential (primary) hypertension; B95.8 Unspecified staphylococcus as the cause of diseases classified elsewhere; M76.61 Achilles tendinitis, right leg; S62.354A Nondisplaced fracture of shaft of fourth metacarpal bone, right hand, initial encounter for closed fracture; E83.42 Hypomagnesemia; Z91.19 Patient's noncompliance with other medical treatment and regimen; R60.9 Edema, unspecified
CPT/HCPCS: 36569; 71045; 73610-RT; 73630; 73721; 76775; 76937; 80048; 80061; 80076; 80202; 82550; 82565; 82947; 82962; 83036; 83735; 84100; 84145; 84443; 84484; 84520; 85025; 85651; 86140; 86803; 87040; 87070; 87075; 87102; 87340; 88305; 93005; 93306; 93922; 93970; 97161

== ENCOUNTER 2018-04-05 20:53 | Inpatient (IN) | payer OTHER ==
[2018-04-06] MEDS: SOD CHLORIDE 0.9% 500 ML IV ×2 (00:51→06:00)
[2018-04-06] MEDS: HYDROmorphONE 0.5 MG/0.5 ML SYG IV (01:30)
[2018-04-06 01:32] LABS: ADD MAN DIFF? NO
[2018-04-06 01:37] LABS: WHITE BLOOD COUNT 13.1 10^3/ul (4.8-10.8)
[2018-04-06 01:37] LABS: BASOPHIL # 0.1 10^3/ul (0.0-0.1); BASOPHILS % 0.8 % (0.0-2.0); EOSINOPHILS # 0.3 10^3/ul (0.0-0.5); EOSINOPHILS % 2.2 % (0.0-7.0); HEMATOCRIT 44.5 % (42.0-52.0); HEMOGLOBIN 14.5 g/dl (14.0-18.0); LYMPHOCYTES # 2.9 10^3/ul (0.8-2.9); LYMPHOCYTES % 22.5 % (15.0-51.0); MEAN CORPUSCULAR HEMOGLOBIN 28.9 pg (29.0-33.0); MEAN CORPUSCULAR HGB CONC 32.6 g/dl (32.0-37.0); MEAN CORPUSCULAR VOLUME 88.8 fl (82.0-101.0); MEAN PLATELET VOLUME 11.1 fl (7.4-10.4); MONOCYTES % 7.8 % (0.0-11.0); NEUTROPHIL # 8.7 10^3/ul (1.6-7.5); NEUTROPHILS % 66.3 % (39.0-77.0); PLATELET COUNT 386 10^3/UL (140-415); RED BLOOD COUNT 5.01 10^6/ul (4.70-6.10); RED CELL DISTRIBUTION WIDTH 12.6 % (11.5-14.5)
[2018-04-06 02:21] LABS: ALANINE AMINOTRANSFERASE 31 IU/L (13-69); ALBUMIN 3.7 g/dl (3.3-4.9); ALBUMIN/GLOBULIN RATIO 1.08; ALKALINE PHOSPHATASE 90 IU/L (42-121); ANION GAP 13 (5-13); ASPARTATE AMINO TRANSFERASE 34 IU/L (15-46); BLOOD UREA NITROGEN 22 mg/dl (7-20); CARBON DIOXIDE 28 mmol/L (21-31); CHLORIDE 95 mmol/L (97-110); CREATININE 1.43 mg/dl (0.61-1.24); Estimated GFR 53 mL/min (>60); LIPASE 69 U/L (23-300); POTASSIUM 4.3 mmol/L (3.5-5.1); SODIUM 136 mmol/L (135-144); TOTAL PROTEIN 7.1 g/dl (6.1-8.1)
[2018-04-06 02:27] LABS: GLUCOSE 453 mg/dl (70-220)
[2018-04-06] MEDS ORDERED: ACETAMINOPHEN 325 MG TAB PO (02:30)
[2018-04-06] MEDS ORDERED: BISACODYL (EC) 5 MG TAB PO (02:30)
[2018-04-06] MEDS ORDERED: NACL 0.9% 3 ML SYG IV (02:30)
[2018-04-06] MEDS ORDERED: morphine 2 MG INJ IV (02:30)
[2018-04-06] MEDS ORDERED: DOCUSATE SODIUM 100 MG CAP PO (02:30)
[2018-04-06] MEDS: VANCOMYCIN IV PER PHARMACY XX (02:59)
[2018-04-06] MEDS: HYDROCODONE/APAP (5/325) TAB PO (03:28)
[2018-04-06] MEDS: METOPROLOL 25 MG TAB PO ×3 (03:45→09:00)
[2018-04-06] MEDS: VANCOMYCIN HCL 2 GM in SOD CHLORIDE 0.9% 500 ML IVPB (03:46)
[2018-04-06] MEDS: INSULIN ASPART [NOVOLOG] 3 ML PEN SC ×5 (03:48→20:53)
[2018-04-06] MEDS: INSULIN GLARGINE [LANTus] (100 UNITS/ML) SYG SC ×4 (03:49→20:54)
[2018-04-06] MEDS: HYDROmorphONE 1 MG/ML SYG IV ×5 (05:18→22:35)
[2018-04-06] MEDS: DIPHENHYDRAMINE 50 MG CAP PO (05:56)
[2018-04-06] MEDS ORDERED: INSULIN ASPART [NOVOLOG] 3 ML PEN SC (08:00)
[2018-04-06] MEDS ORDERED: INSULIN GLARGINE [LANTus] (100 UNITS/ML) SYG SC ×2 (09:00→18:00)
[2018-04-06] MEDS ORDERED: LISINOPRIL 20 MG TAB PO (09:00)
[2018-04-06] MEDS ORDERED: INSULIN GLARGINE SC (09:00)
[2018-04-06] MEDS: DOXYCYCLINE 100 MG in SOD CHLORIDE 0.9% 250 ML IVPB ×2 (09:33→20:51)
[2018-04-06] MEDS: GABAPENTIN 300 MG CAP PO ×2 (09:42→20:51)
[2018-04-06] MEDS: ZINC SULFATE 220 MG CAP PO (09:43)
[2018-04-06] MEDS: AMLODIPINE 5 MG TAB PO (09:43)
[2018-04-06] MEDS: ASPIRIN (EC) 81 MG TAB PO (09:54)
[2018-04-06] MEDS: HEPARIN 5,000 UNIT/1 ML VIAL SC ×3 (09:55→22:36)
[2018-04-06 09:57] LABS: ADD UMIC YES; UR ASCORBIC ACID NEGATIVE (NEGATIVE); UR BILIRUBIN (Dip) NEGATIVE (NEGATIVE); UR BLOOD (Dip) NEGATIVE (NEGATIVE); UR CLARITY CLEAR (CLEAR); UR COLOR YELLOW (YELLOW); UR GLUCOSE (Dip) 3+ mg/dL (NEGATIVE); UR KETONES (Dip) NEGATIVE (NEGATIVE); UR LEUKOCYTE ESTERASE (Dip) NEGATIVE Leu/ul (NEGATIVE); UR NITRITE (Dip) NEGATIVE (NEGATIVE); UR RBC 1 /HPF (0-5); UR SPECIFIC GRAVITY (Dip) 1.027 (1.003-1.030); UR TOTAL PROTEIN (Dip) 2+ mg/dl (NEGATIVE); UR UROBILINOGEN (Dip) NEGATIVE (NEGATIVE); UR WBC 0 /HPF (0-5)
[2018-04-06 10:02] LABS: CREATININE,URINE RANDOM 178.06 mg/dl (20-370)
[2018-04-06 10:02] LABS: SODIUM,URINE RANDOM 42 mmol/L (30-90)
[2018-04-06] MEDS: LACTOBACILLUS RHAMNOSUS CAP PO ×2 (10:23→20:52)
[2018-04-06 12:32] LABS: HEMOGLOBIN A1C 12.5 % (0-5.9)
[2018-04-06] MEDS: VANCOMYCIN 1 GM 250 ML IVPB (16:50)
[2018-04-06] MEDS: ATORVASTATIN 40 MG TAB PO (20:51)
[2018-04-06] MEDS: METOPROLOL 50 MG TAB PO (20:51)
[2018-04-07] MEDS: ACCU-CHEK XX (02:00)
[2018-04-07] MEDS: INSULIN ASPART [NOVOLOG] 3 ML PEN SC ×5 (02:20→21:00)
[2018-04-07] MEDS: ASPIRIN 325 MG TAB PO (02:48)
[2018-04-07] MEDS: HYDROmorphONE 1 MG/ML SYG IV ×5 (02:52→22:40)
[2018-04-07] MEDS ORDERED: HEPARIN 1000 UNITS/ML 10 ML INJ IV (03:00)
[2018-04-07] MEDS: VANCOMYCIN 1 GM 250 ML IVPB ×2 (04:00→15:26)
[2018-04-07] MEDS: HEPARIN 1000 UNITS/ML 10 ML INJ IV (05:21)
[2018-04-07 05:24] LABS: ADD MAN DIFF? NO
[2018-04-07 05:48] LABS: INR 0.89; PROTIME 12.1 Sec (11.9-14.9); PT RATIO 0.9
[2018-04-07 05:49] LABS: PARTIAL THROMBOPLASTIN TIME 31.5 Sec (23.0-35.0)
[2018-04-07 06:10] LABS: ALANINE AMINOTRANSFERASE 50 IU/L (13-69); ALBUMIN 3.7 g/dl (3.3-4.9); ALBUMIN/GLOBULIN RATIO 1.15; ALKALINE PHOSPHATASE 89 IU/L (42-121); ANION GAP 16 (5-13); ASPARTATE AMINO TRANSFERASE 44 IU/L (15-46); BLOOD UREA NITROGEN 21 mg/dl (7-20); CALCIUM 9.6 mg/dl (8.4-10.2); CARBON DIOXIDE 24 mmol/L (21-31); CHLORIDE 97 mmol/L (97-110); CHOL/HDL RATIO 4.5 RATIO; CHOLESTEROL 133 mg/dl (100-200); Estimated GFR > 60 mL/min (>60); GLUCOSE 330 mg/dl (70-220); HDL CHOLESTEROL 29 mg/dl (27-67); LDL CHOLESTEROL,CALCULATED 67 mg/dl; MAGNESIUM 1.9 mg/dl (1.7-2.5); POTASSIUM 5.4 mmol/L (3.5-5.1); SODIUM 137 mmol/L (135-144); TOTAL PROTEIN 6.9 g/dl (6.1-8.1); TRIGLYCERIDES 186 mg/dl (0-149)
[2018-04-07 06:17] LABS: CREATINE KINASE 173 IU/L (23-200)
[2018-04-07 06:19] LABS: CK INDEX 1.4; CK-MB 2.38 ng/ml (0.0-2.4)
[2018-04-07 07:02] LABS: BASOPHIL # 0.1 10^3/ul (0.0-0.1); EOSINOPHILS # 0.4 10^3/ul (0.0-0.5); HEMATOCRIT 45.7 % (42.0-52.0); LYMPHOCYTES # 3.1 10^3/ul (0.8-2.9); LYMPHOCYTES % 27.7 % (15.0-51.0); MEAN CORPUSCULAR HEMOGLOBIN 29.3 pg (29.0-33.0); MEAN CORPUSCULAR HGB CONC 32.8 g/dl (32.0-37.0); MEAN CORPUSCULAR VOLUME 89.3 fl (82.0-101.0); MEAN PLATELET VOLUME 11.1 fl (7.4-10.4); MONOCYTE # 0.9 10^3/ul (0.3-0.9); NEUTROPHIL # 6.5 10^3/ul (1.6-7.5); NEUTROPHILS % 58.9 % (39.0-77.0); PLATELET COUNT 422 10^3/UL (140-415); RED BLOOD COUNT 5.12 10^6/ul (4.70-6.10); RED CELL DISTRIBUTION WIDTH 12.2 % (11.5-14.5)
[2018-04-07] MEDS: ASPIRIN (EC) 81 MG TAB PO (08:16)
[2018-04-07] MEDS: ZINC SULFATE 220 MG CAP PO (08:16)
[2018-04-07] MEDS: GABAPENTIN 300 MG CAP PO ×2 (08:16→22:19)
[2018-04-07] MEDS: METOPROLOL 50 MG TAB PO ×2 (08:16→22:19)
[2018-04-07] MEDS: LACTOBACILLUS RHAMNOSUS CAP PO ×2 (08:16→22:20)
[2018-04-07] MEDS: AMLODIPINE 5 MG TAB PO (08:16)
[2018-04-07] MEDS: LISINOPRIL 5 MG TAB PO (08:17)
[2018-04-07] MEDS: INSULIN GLARGINE [LANTus] (100 UNITS/ML) SYG SC ×2 (09:24→18:00)
[2018-04-07] MEDS: DOXYCYCLINE 100 MG in SOD CHLORIDE 0.9% 250 ML IVPB (10:30)
[2018-04-07] MEDS: HEPARIN 25000 UNITS/250 ML 250 ML IV (11:50)
[2018-04-07 12:35] LABS: CREATINE KINASE 188 IU/L (23-200)
[2018-04-07 12:46] LABS: CK INDEX 1.3; CK-MB 2.35 ng/ml (0.0-2.4)
[2018-04-07] MEDS ORDERED: DEXTROSE 50% 50 ML SYRINGE IV (13:00)
[2018-04-07] MEDS: HYDROCODONE/APAP (5/325) TAB PO (13:35)
[2018-04-07] MEDS: INSULIN REGULAR, HUMAN 100 UNIT/1 ML 3ML VIAL IVP (13:42)
[2018-04-07 14:44] LABS: CREATININE, RANDOM URINE 161 mg/dL (20-320); MICROALBUMIN 29.1 mg/dL; MICROALBUMIN/CREATININE RATIO 181 (<30)
[2018-04-07 16:44] LABS: VANCOMYCIN,TROUGH 9.5 ug/ml (10.0-20.0)
[2018-04-07] MEDS ORDERED: MIDAZOLAM 1 MG/ML 2 ML INJ (18:34)
[2018-04-07] MEDS: LIDOCAINE 1%/EPI (1:100,000) (MDV) 20 ML (19:18)
[2018-04-07] MEDS: LIDOCAINE 1% (MPF) 30 ML INJ (19:18)
[2018-04-07] MEDS: MINERAL OIL LIGHT 10 ML VIAL (19:19)
[2018-04-07] MEDS ORDERED: LIDOCAINE 2% (SDV) 5 ML INJ (19:40)
[2018-04-07] MEDS ORDERED: PROPOFOL 20 ML (19:40)
[2018-04-07] MEDS ORDERED: ETOMIDATE 20 MG INJ (19:40)
[2018-04-07] MEDS ORDERED: CEFAZOLIN 1 GM INJ (19:41)
[2018-04-07] MEDS ORDERED: ONDANSETRON 4 MG INJ (19:41)
[2018-04-07] MEDS ORDERED: BUPIVACAINE 0.25% (MPF) 30 ML INJ (19:42)
[2018-04-07] MEDS ORDERED: NALOXONE (0.4 MG/ML) INJ IV (21:00)
[2018-04-07] MEDS ORDERED: DIPHENHYDRAMINE 50 MG INJ IV (21:00)
[2018-04-07] MEDS ORDERED: MEPERIDINE 25 MG INJ IV (21:00)
[2018-04-07] MEDS ORDERED: METOCLOPRAMIDE 10 MG INJ IV (21:00)
[2018-04-07] MEDS ORDERED: ONDANSETRON 4 MG INJ IV (21:00)
[2018-04-07] MEDS ORDERED: FENTAnyl 50 MCG/ML VIAL IV (21:00)
[2018-04-07] MEDS: ONDANSETRON 4 MG INJ IV (21:23)
[2018-04-07] MEDS: CEFEPIME 1GM/50 ML (PMX) 50 ML IVPB (22:16)
[2018-04-07] MEDS: ATORVASTATIN 40 MG TAB PO (22:18)
[2018-04-08] MEDS: HYDROmorphONE 0.5 MG/0.5 ML SYG IV (00:23)
[2018-04-08] MEDS: HYDROCODONE/APAP (5/325) TAB PO ×2 (01:03→06:50)
[2018-04-08] MEDS: ACCU-CHEK XX (02:00)
[2018-04-08] MEDS: HYDROmorphONE 1 MG/ML SYG IV ×4 (02:00→16:48)
[2018-04-08] MEDS: VANCOMYCIN HCL 1.25 GM in SOD CHLORIDE 0.9% 250 ML IVPB ×2 (02:08→16:48)
[2018-04-08] MEDS: INSULIN GLARGINE [LANTus] (100 UNITS/ML) SYG SC ×2 (07:14→17:53)
[2018-04-08] MEDS: INSULIN ASPART [NOVOLOG] 3 ML PEN SC ×4 (09:02→21:29)
[2018-04-08 09:16] LABS: ANION GAP 17 (5-13); BLOOD UREA NITROGEN 19 mg/dl (7-20); CALCIUM 9.8 mg/dl (8.4-10.2); CARBON DIOXIDE 27 mmol/L (21-31); CHLORIDE 97 mmol/L (97-110); CREATININE 1.06 mg/dl (0.61-1.24); Estimated GFR > 60 mL/min (>60); GLUCOSE 306 mg/dl (70-220); PHOSPHORUS 4.1 mg/dl (2.5-4.9); SODIUM 141 mmol/L (135-144)
[2018-04-08 09:18] LABS: PARTIAL THROMBOPLASTIN TIME 29.3 Sec (23.0-35.0)
[2018-04-08] MEDS: LISINOPRIL 5 MG TAB PO (09:24)
[2018-04-08] MEDS: METOPROLOL 50 MG TAB PO ×2 (09:24→21:15)
[2018-04-08] MEDS: ASPIRIN (EC) 81 MG TAB PO (09:24)
[2018-04-08] MEDS: ZINC SULFATE 220 MG CAP PO (09:24)
[2018-04-08] MEDS: GABAPENTIN 300 MG CAP PO ×2 (09:24→21:15)
[2018-04-08] MEDS: CEFEPIME 1GM/50 ML (PMX) 50 ML IVPB ×2 (09:25→21:15)
[2018-04-08] MEDS: AMLODIPINE 5 MG TAB PO (09:25)
[2018-04-08] MEDS ORDERED: OXYCODONE/ACETAMINOPHEN (5/325) TAB PO (11:30)
[2018-04-08] MEDS: OXYCODONE/ACETAMINOPHEN (10/325) TAB PO ×3 (11:43→21:15)
[2018-04-08] MEDS: LACTOBACILLUS RHAMNOSUS CAP PO ×2 (11:45→21:15)
[2018-04-08] MEDS: FUROSEMIDE 40 MG INJ IV (16:48)
[2018-04-08] MEDS: DIPHENHYDRAMINE 50 MG INJ IV ×2 (18:38→22:04)
[2018-04-08] MEDS: ATORVASTATIN 40 MG TAB PO (21:15)
[2018-04-09] MEDS: ACCU-CHEK XX (02:00)
[2018-04-09] MEDS: VANCOMYCIN HCL 1.25 GM in SOD CHLORIDE 0.9% 250 ML IVPB ×2 (02:28→15:55)
[2018-04-09] MEDS: HYDROmorphONE 1 MG/ML SYG IV ×5 (04:14→20:36)
[2018-04-09] MEDS: OXYCODONE/ACETAMINOPHEN (10/325) TAB PO ×3 (04:14→20:35)
[2018-04-09] MEDS: INSULIN GLARGINE [LANTus] (100 UNITS/ML) SYG SC ×2 (06:03→17:41)
[2018-04-09] MEDS: INSULIN ASPART [NOVOLOG] 3 ML PEN SC ×4 (08:55→20:52)
[2018-04-09] MEDS: LACTOBACILLUS RHAMNOSUS CAP PO ×2 (09:30→21:00)
[2018-04-09] MEDS: CEFEPIME 1GM/50 ML (PMX) 50 ML IVPB ×2 (09:30→20:36)
[2018-04-09] MEDS: ZINC SULFATE 220 MG CAP PO (09:30)
[2018-04-09] MEDS: GABAPENTIN 300 MG CAP PO ×2 (09:30→20:35)
[2018-04-09] MEDS: ASPIRIN (EC) 81 MG TAB PO (09:31)
[2018-04-09] MEDS: LISINOPRIL 5 MG TAB PO (09:31)
[2018-04-09] MEDS: METOPROLOL 50 MG TAB PO ×2 (09:31→20:35)
[2018-04-09] MEDS: AMLODIPINE 5 MG TAB PO (09:32)
[2018-04-09] MEDS: DIPHENHYDRAMINE 50 MG INJ IV ×3 (09:32→21:36)
[2018-04-09] MEDS: FLUOCINONIDE 0.05% 15 GM CR TOP ×3 (09:33→21:35)
[2018-04-09] MEDS: LIDOCAINE 1% (MPF) 5 ML VIAL SC (15:41)
[2018-04-09] MEDS: ATORVASTATIN 40 MG TAB PO (20:35)
[2018-04-09 22:17] LABS: WHITE BLOOD COUNT 12.5 10^3/ul (4.8-10.8)
[2018-04-09 22:17] LABS: ADD MAN DIFF? NO; BASOPHIL # 0.1 10^3/ul (0.0-0.1); BASOPHILS % 0.6 % (0.0-2.0); EOSINOPHILS # 0.5 10^3/ul (0.0-0.5); EOSINOPHILS % 3.9 % (0.0-7.0); HEMATOCRIT 44.4 % (42.0-52.0); HEMOGLOBIN 14.2 g/dl (14.0-18.0); LYMPHOCYTES # 2.5 10^3/ul (0.8-2.9); LYMPHOCYTES % 19.5 % (15.0-51.0); MEAN CORPUSCULAR HEMOGLOBIN 29.4 pg (29.0-33.0); MEAN CORPUSCULAR VOLUME 91.9 fl (82.0-101.0); MEAN PLATELET VOLUME 10.9 fl (7.4-10.4); MONOCYTE # 0.8 10^3/ul (0.3-0.9); MONOCYTES % 6.7 % (0.0-11.0); NEUTROPHIL # 8.6 10^3/ul (1.6-7.5); NEUTROPHILS % 68.9 % (39.0-77.0); PLATELET COUNT 386 10^3/UL (140-415); RED BLOOD COUNT 4.83 10^6/ul (4.70-6.10); RED CELL DISTRIBUTION WIDTH 12.5 % (11.5-14.5)
[2018-04-09 22:37] LABS: ALBUMIN 3.7 g/dl (3.3-4.9); ANION GAP 11 (5-13); BLOOD UREA NITROGEN 20 mg/dl (7-20); CALCIUM 9.3 mg/dl (8.4-10.2); CARBON DIOXIDE 28 mmol/L (21-31); CHLORIDE 99 mmol/L (97-110); CREATININE 1.09 mg/dl (0.61-1.24); GLUCOSE 344 mg/dl (70-220); MAGNESIUM 1.9 mg/dl (1.7-2.5); PHOSPHORUS 3.4 mg/dl (2.5-4.9); POTASSIUM 4.6 mmol/L (3.5-5.1); SODIUM 138 mmol/L (135-144)
[2018-04-09 22:41] LABS: VANCOMYCIN,TROUGH 15.6 ug/ml (10.0-20.0)
[2018-04-10] MEDS: OXYCODONE/ACETAMINOPHEN (10/325) TAB PO ×6 (00:17→22:21)
[2018-04-10] MEDS: HYDROmorphONE 1 MG/ML SYG IV ×6 (00:18→21:23)
[2018-04-10] MEDS: ACCU-CHEK XX (02:40)
[2018-04-10] MEDS: DIPHENHYDRAMINE 50 MG INJ IV ×3 (04:55→18:00)
[2018-04-10] MEDS: VANCOMYCIN HCL 1.25 GM in SOD CHLORIDE 0.9% 250 ML IVPB ×2 (04:55→18:57)
[2018-04-10] MEDS: INSULIN GLARGINE [LANTus] (100 UNITS/ML) SYG SC ×2 (06:03→17:38)
[2018-04-10 06:18] LABS: ADD MAN DIFF? NO
[2018-04-10 06:23] LABS: BASOPHIL # 0.1 10^3/ul (0.0-0.1); BASOPHILS % 0.8 % (0.0-2.0); EOSINOPHILS # 0.6 10^3/ul (0.0-0.5); EOSINOPHILS % 4.8 % (0.0-7.0); HEMATOCRIT 44.5 % (42.0-52.0); HEMOGLOBIN 13.8 g/dl (14.0-18.0); LYMPHOCYTES # 3.1 10^3/ul (0.8-2.9); LYMPHOCYTES % 25.8 % (15.0-51.0); MEAN CORPUSCULAR HEMOGLOBIN 28.8 pg (29.0-33.0); MEAN CORPUSCULAR VOLUME 92.7 fl (82.0-101.0); MEAN PLATELET VOLUME 10.9 fl (7.4-10.4); MONOCYTES % 8.1 % (0.0-11.0); NEUTROPHIL # 7.2 10^3/ul (1.6-7.5); NEUTROPHILS % 60.1 % (39.0-77.0); PLATELET COUNT 383 10^3/UL (140-415); RED CELL DISTRIBUTION WIDTH 12.5 % (11.5-14.5)
[2018-04-10 07:27] LABS: ALBUMIN 3.6 g/dl (3.3-4.9); ANION GAP 12 (5-13); BLOOD UREA NITROGEN 21 mg/dl (7-20); CALCIUM 9.2 mg/dl (8.4-10.2); CARBON DIOXIDE 29 mmol/L (21-31); CHLORIDE 100 mmol/L (97-110); CREATININE 1.16 mg/dl (0.61-1.24); GLUCOSE 196 mg/dl (70-220); MAGNESIUM 1.9 mg/dl (1.7-2.5); PHOSPHORUS 4.4 mg/dl (2.5-4.9); POTASSIUM 4.4 mmol/L (3.5-5.1); SODIUM 141 mmol/L (135-144)
[2018-04-10] MEDS: INSULIN ASPART [NOVOLOG] 3 ML PEN SC ×5 (08:02→20:41)
[2018-04-10] MEDS: ASPIRIN (EC) 81 MG TAB PO (09:00)
[2018-04-10] MEDS: GABAPENTIN 300 MG CAP PO ×2 (09:00→20:34)
[2018-04-10] MEDS: LACTOBACILLUS RHAMNOSUS CAP PO ×2 (09:00→20:34)
[2018-04-10] MEDS: METOPROLOL 50 MG TAB PO ×2 (09:01→21:24)
[2018-04-10] MEDS: AMLODIPINE 5 MG TAB PO (09:01)
[2018-04-10] MEDS: ZINC SULFATE 220 MG CAP PO (09:01)
[2018-04-10] MEDS: CEFEPIME 1GM/50 ML (PMX) 50 ML IVPB ×2 (09:02→20:34)
[2018-04-10] MEDS: LISINOPRIL 5 MG TAB PO (09:02)
[2018-04-10] MEDS: FLUOCINONIDE 0.05% 15 GM CR TOP ×3 (09:03→21:00)
[2018-04-10 12:33] LABS: CREATINE KINASE 224 IU/L (23-200)
[2018-04-10 12:44] LABS: CK INDEX 1.1
[2018-04-10] MEDS ORDERED: GLUCOSE GEL 15 GRAM TUBE PO ×2 (14:00)
[2018-04-10] MEDS ORDERED: GLUCAGON 1 MG INJ IM (14:00)
[2018-04-10] MEDS ORDERED: GLUCOSE GEL 15 GRAM TUBE BUCCAL (14:00)
[2018-04-10] MEDS ORDERED: DEXTROSE 50% 50 ML SYRINGE IV ×2 (14:00)
[2018-04-10] MEDS: LINAGLIPTIN 5 MG TABLET PO (14:02)
[2018-04-10 18:57] LABS: CREATINE KINASE 194 IU/L (23-200)
[2018-04-10 19:11] LABS: CK INDEX 1.2; CK-MB 2.35 ng/ml (0.0-2.4)
[2018-04-10] MEDS: ATORVASTATIN 40 MG TAB PO (20:34)
[2018-04-11] MEDS: HYDROmorphONE 1 MG/ML SYG IV ×7 (00:32→20:43)
[2018-04-11] MEDS: DIPHENHYDRAMINE 50 MG INJ IV ×4 (00:32→18:25)
[2018-04-11] MEDS: OXYCODONE/ACETAMINOPHEN (10/325) TAB PO ×5 (02:35→20:16)
[2018-04-11] MEDS: ACCU-CHEK XX (02:45)
[2018-04-11] MEDS: VANCOMYCIN HCL 1.25 GM in SOD CHLORIDE 0.9% 250 ML IVPB ×2 (05:12→17:27)
[2018-04-11] MEDS: INSULIN GLARGINE [LANTus] (100 UNITS/ML) SYG SC ×2 (05:23→17:37)
[2018-04-11 06:53] LABS: ADD MAN DIFF? NO
[2018-04-11 06:59] LABS: WHITE BLOOD COUNT 12.4 10^3/ul (4.8-10.8)
[2018-04-11 06:59] LABS: BASOPHIL # 0.1 10^3/ul (0.0-0.1); BASOPHILS % 0.6 % (0.0-2.0); EOSINOPHILS # 0.7 10^3/ul (0.0-0.5); EOSINOPHILS % 5.5 % (0.0-7.0); HEMATOCRIT 45.4 % (42.0-52.0); HEMOGLOBIN 14.1 g/dl (14.0-18.0); LYMPHOCYTES # 2.8 10^3/ul (0.8-2.9); LYMPHOCYTES % 22.9 % (15.0-51.0); MEAN CORPUSCULAR HEMOGLOBIN 28.9 pg (29.0-33.0); MEAN CORPUSCULAR HGB CONC 31.1 g/dl (32.0-37.0); MEAN PLATELET VOLUME 11.8 fl (7.4-10.4); MONOCYTE # 0.9 10^3/ul (0.3-0.9); MONOCYTES % 7.6 % (0.0-11.0); NEUTROPHIL # 7.8 10^3/ul (1.6-7.5); PLATELET COUNT 288 10^3/UL (140-415); RED BLOOD COUNT 4.88 10^6/ul (4.70-6.10); RED CELL DISTRIBUTION WIDTH 12.5 % (11.5-14.5)
[2018-04-11 07:40] LABS: ALBUMIN 3.8 g/dl (3.3-4.9); ANION GAP 11 (5-13); BLOOD UREA NITROGEN 19 mg/dl (7-20); CALCIUM 9.1 mg/dl (8.4-10.2); CARBON DIOXIDE 28 mmol/L (21-31); CHLORIDE 101 mmol/L (97-110); CREATININE 1.16 mg/dl (0.61-1.24); GLUCOSE 232 mg/dl (70-220); MAGNESIUM 1.9 mg/dl (1.7-2.5); PHOSPHORUS 4.1 mg/dl (2.5-4.9); POTASSIUM 4.5 mmol/L (3.5-5.1); SODIUM 140 mmol/L (135-144)
[2018-04-11] MEDS: INSULIN ASPART [NOVOLOG] 3 ML PEN SC ×7 (07:51→20:35)
[2018-04-11] MEDS: ZINC SULFATE 220 MG CAP PO (08:19)
[2018-04-11] MEDS: CEFEPIME 1GM/50 ML (PMX) 50 ML IVPB (08:19)
[2018-04-11] MEDS: LACTOBACILLUS RHAMNOSUS CAP PO ×2 (08:19→20:16)
[2018-04-11] MEDS: ASPIRIN (EC) 81 MG TAB PO (08:20)
[2018-04-11] MEDS: AMLODIPINE 5 MG TAB PO (08:20)
[2018-04-11] MEDS: GABAPENTIN 300 MG CAP PO ×2 (08:20→20:16)
[2018-04-11] MEDS: LINAGLIPTIN 5 MG TABLET PO (08:20)
[2018-04-11] MEDS: METOPROLOL 50 MG TAB PO ×2 (08:21→20:37)
[2018-04-11] MEDS: FLUOCINONIDE 0.05% 15 GM CR TOP ×3 (08:21→20:17)
[2018-04-11] MEDS: LISINOPRIL 5 MG TAB PO (08:27)
[2018-04-11] MEDS: LISINOPRIL 10 MG TAB PO (13:13)
[2018-04-11] MEDS: LEVOFLOXACIN 500 MG TAB PO (18:25)
[2018-04-11] MEDS: DOXYCYCLINE 100 MG TAB PO (20:16)
[2018-04-11] MEDS: ATORVASTATIN 40 MG TAB PO (20:16)
[2018-04-12] MEDS: HYDROmorphONE 1 MG/ML SYG IV ×5 (00:23→20:23)
[2018-04-12] MEDS: DIPHENHYDRAMINE 50 MG INJ IV ×2 (00:36→06:40)
[2018-04-12] MEDS: OXYCODONE/ACETAMINOPHEN (10/325) TAB PO ×3 (00:36→09:30)
[2018-04-12] MEDS: ACCU-CHEK XX (02:00)
[2018-04-12] MEDS: LEVOFLOXACIN 500 MG TAB PO (05:26)
[2018-04-12] MEDS: INSULIN GLARGINE [LANTus] (100 UNITS/ML) SYG SC ×2 (05:29→18:08)
[2018-04-12 05:49] LABS: ADD MAN DIFF? NO
[2018-04-12 05:53] LABS: BASOPHIL # 0.1 10^3/ul (0.0-0.1); BASOPHILS % 0.8 % (0.0-2.0); EOSINOPHILS # 0.7 10^3/ul (0.0-0.5); EOSINOPHILS % 5.7 % (0.0-7.0); HEMATOCRIT 44.8 % (42.0-52.0); HEMOGLOBIN 14.2 g/dl (14.0-18.0); LYMPHOCYTES # 2.8 10^3/ul (0.8-2.9); LYMPHOCYTES % 21.5 % (15.0-51.0); MEAN CORPUSCULAR HGB CONC 31.7 g/dl (32.0-37.0); MEAN CORPUSCULAR VOLUME 91.6 fl (82.0-101.0); MEAN PLATELET VOLUME 11.1 fl (7.4-10.4); MONOCYTES % 7.8 % (0.0-11.0); NEUTROPHIL # 8.2 10^3/ul (1.6-7.5); NEUTROPHILS % 63.7 % (39.0-77.0); PLATELET COUNT 355 10^3/UL (140-415); RED BLOOD COUNT 4.89 10^6/ul (4.70-6.10); RED CELL DISTRIBUTION WIDTH 12.7 % (11.5-14.5)
[2018-04-12 05:53] LABS: WHITE BLOOD COUNT 12.9 10^3/ul (4.8-10.8)
[2018-04-12 07:02] LABS: VANCOMYCIN,TROUGH 5.9 ug/ml (10.0-20.0)
[2018-04-12 07:02] LABS: ANION GAP 13 (5-13); BLOOD UREA NITROGEN 18 mg/dl (7-20); CALCIUM 9.1 mg/dl (8.4-10.2); CARBON DIOXIDE 30 mmol/L (21-31); CHLORIDE 99 mmol/L (97-110); CREATININE 1.02 mg/dl (0.61-1.24); Estimated GFR > 60 mL/min (>60); GLUCOSE 218 mg/dl (70-220); MAGNESIUM 1.8 mg/dl (1.7-2.5); PHOSPHORUS 3.6 mg/dl (2.5-4.9); POTASSIUM 4.5 mmol/L (3.5-5.1); SODIUM 142 mmol/L (135-144)
[2018-04-12] MEDS: LACTOBACILLUS RHAMNOSUS CAP PO ×2 (09:30→20:22)
[2018-04-12] MEDS: DOXYCYCLINE 100 MG TAB PO ×2 (09:30→20:22)
[2018-04-12] MEDS: ZINC SULFATE 220 MG CAP PO (09:31)
[2018-04-12] MEDS: LISINOPRIL 20 MG TAB PO (09:31)
[2018-04-12] MEDS: LINAGLIPTIN 5 MG TABLET PO (09:31)
[2018-04-12] MEDS: AMLODIPINE 5 MG TAB PO (09:31)
[2018-04-12] MEDS: ASPIRIN (EC) 81 MG TAB PO (09:31)
[2018-04-12] MEDS: GABAPENTIN 300 MG CAP PO ×3 (09:31→20:23)
[2018-04-12] MEDS: FLUOCINONIDE 0.05% 15 GM CR TOP ×3 (09:32→20:31)
[2018-04-12] MEDS: METOPROLOL 50 MG TAB PO ×2 (09:32→20:23)
[2018-04-12] MEDS: INSULIN ASPART [NOVOLOG] 3 ML PEN SC ×7 (09:45→20:31)
[2018-04-12] MEDS: DIPHENHYDRAMINE 25 MG CAP PO (11:35)
[2018-04-12] MEDS: FUROSEMIDE 20 MG INJ IV (17:54)
[2018-04-12] MEDS: ONDANSETRON 4 MG INJ IV (17:54)
[2018-04-12] MEDS: ATORVASTATIN 40 MG TAB PO (20:22)
[2018-04-13] MEDS: ACCU-CHEK XX (02:00)
[2018-04-13] MEDS: LEVOFLOXACIN 500 MG TAB PO (05:55)
[2018-04-13] MEDS: INSULIN GLARGINE [LANTus] (100 UNITS/ML) SYG SC ×2 (06:03→18:44)
[2018-04-13] MEDS: OXYCODONE/ACETAMINOPHEN (10/325) TAB PO (06:06)
[2018-04-13 06:23] LABS: ADD MAN DIFF? NO
[2018-04-13 06:28] LABS: BASOPHIL # 0.1 10^3/ul (0.0-0.1); BASOPHILS % 0.7 % (0.0-2.0); EOSINOPHILS # 0.5 10^3/ul (0.0-0.5); EOSINOPHILS % 4.1 % (0.0-7.0); HEMATOCRIT 45.5 % (42.0-52.0); HEMOGLOBIN 14.5 g/dl (14.0-18.0); LYMPHOCYTES # 2.3 10^3/ul (0.8-2.9); LYMPHOCYTES % 17.6 % (15.0-51.0); MEAN CORPUSCULAR HEMOGLOBIN 28.9 pg (29.0-33.0); MEAN CORPUSCULAR HGB CONC 31.9 g/dl (32.0-37.0); MEAN CORPUSCULAR VOLUME 90.8 fl (82.0-101.0); MEAN PLATELET VOLUME 10.9 fl (7.4-10.4); MONOCYTE # 0.9 10^3/ul (0.3-0.9); MONOCYTES % 6.7 % (0.0-11.0); NEUTROPHIL # 9.3 10^3/ul (1.6-7.5); NEUTROPHILS % 70.2 % (39.0-77.0); PLATELET COUNT 370 10^3/UL (140-415); RED BLOOD COUNT 5.01 10^6/ul (4.70-6.10); RED CELL DISTRIBUTION WIDTH 12.7 % (11.5-14.5)
[2018-04-13 06:28] LABS: WHITE BLOOD COUNT 13.2 10^3/ul (4.8-10.8)
[2018-04-13 06:58] LABS: POTASSIUM 4.4 mmol/L (3.5-5.1)
[2018-04-13 07:01] LABS: ANION GAP 11 (5-13); BLOOD UREA NITROGEN 16 mg/dl (7-20); CALCIUM 9.2 mg/dl (8.4-10.2); CARBON DIOXIDE 29 mmol/L (21-31); CHLORIDE 99 mmol/L (97-110); CREATININE 0.97 mg/dl (0.61-1.24); Estimated GFR > 60 mL/min (>60); GLUCOSE 208 mg/dl (70-220); MAGNESIUM 1.9 mg/dl (1.7-2.5); PHOSPHORUS 3.6 mg/dl (2.5-4.9); SODIUM 139 mmol/L (135-144)
[2018-04-13] MEDS: AMLODIPINE 5 MG TAB PO (08:29)
[2018-04-13] MEDS: GABAPENTIN 300 MG CAP PO ×3 (08:29→20:18)
[2018-04-13] MEDS: ZINC SULFATE 220 MG CAP PO (08:29)
[2018-04-13] MEDS: LINAGLIPTIN 5 MG TABLET PO (08:30)
[2018-04-13] MEDS: DOXYCYCLINE 100 MG TAB PO ×2 (08:30→20:18)
[2018-04-13] MEDS: METOPROLOL 50 MG TAB PO ×2 (08:30→20:18)
[2018-04-13] MEDS: ASPIRIN (EC) 81 MG TAB PO (08:30)
[2018-04-13] MEDS: LACTOBACILLUS RHAMNOSUS CAP PO ×2 (08:30→20:18)
[2018-04-13] MEDS: LISINOPRIL 20 MG TAB PO (08:30)
[2018-04-13] MEDS: INSULIN ASPART [NOVOLOG] 3 ML PEN SC ×7 (08:53→21:17)
[2018-04-13] MEDS: FLUOCINONIDE 0.05% 15 GM CR TOP ×3 (09:08→21:17)
[2018-04-13 12:34] LABS: TROPONIN-I 0.575 ng/ml (0.000-0.120)
[2018-04-13] MEDS: ATORVASTATIN 40 MG TAB PO (20:18)
[2018-04-13] MEDS: HYDROmorphONE 1 MG/ML SYG IV (20:23)
[2018-04-14] MEDS: ACCU-CHEK XX (02:21)
[2018-04-14] MEDS: OXYCODONE/ACETAMINOPHEN (10/325) TAB PO ×2 (02:22→17:45)
[2018-04-14] MEDS: LEVOFLOXACIN 500 MG TAB PO (05:43)
[2018-04-14] MEDS: HYDROmorphONE 1 MG/ML SYG IV ×4 (05:44→21:12)
[2018-04-14] MEDS: INSULIN GLARGINE [LANTus] (100 UNITS/ML) SYG SC ×2 (05:47→18:25)
[2018-04-14 06:49] LABS: ADD MAN DIFF? NO
[2018-04-14 06:54] LABS: BASOPHIL # 0.1 10^3/ul (0.0-0.1); BASOPHILS % 0.6 % (0.0-2.0); EOSINOPHILS # 0.4 10^3/ul (0.0-0.5); EOSINOPHILS % 3.4 % (0.0-7.0); HEMATOCRIT 46.2 % (42.0-52.0); HEMOGLOBIN 14.6 g/dl (14.0-18.0); LYMPHOCYTES % 23.1 % (15.0-51.0); MEAN CORPUSCULAR HEMOGLOBIN 28.6 pg (29.0-33.0); MEAN CORPUSCULAR HGB CONC 31.6 g/dl (32.0-37.0); MEAN CORPUSCULAR VOLUME 90.6 fl (82.0-101.0); MEAN PLATELET VOLUME 11.2 fl (7.4-10.4); MONOCYTE # 0.9 10^3/ul (0.3-0.9); MONOCYTES % 6.6 % (0.0-11.0); NEUTROPHIL # 8.5 10^3/ul (1.6-7.5); NEUTROPHILS % 65.9 % (39.0-77.0); PLATELET COUNT 381 10^3/UL (140-415); RED CELL DISTRIBUTION WIDTH 12.7 % (11.5-14.5)
[2018-04-14 07:25] LABS: ANION GAP 5 (5-13); BLOOD UREA NITROGEN 14 mg/dl (7-20); CALCIUM 9.2 mg/dl (8.4-10.2); CARBON DIOXIDE 31 mmol/L (21-31); CHLORIDE 105 mmol/L (97-110); CREATININE 0.95 mg/dl (0.61-1.24); Estimated GFR > 60 mL/min (>60); GLUCOSE 150 mg/dl (70-220); MAGNESIUM 1.9 mg/dl (1.7-2.5); PHOSPHORUS 3.3 mg/dl (2.5-4.9); SODIUM 141 mmol/L (135-144)
[2018-04-14 07:48] LABS: POTASSIUM 4.1 mmol/L (3.5-5.1)
[2018-04-14] MEDS: INSULIN ASPART [NOVOLOG] 3 ML PEN SC ×7 (07:55→21:14)
[2018-04-14] MEDS: ASPIRIN (EC) 81 MG TAB PO (09:06)
[2018-04-14] MEDS: ZINC SULFATE 220 MG CAP PO (09:06)
[2018-04-14] MEDS: GABAPENTIN 300 MG CAP PO ×3 (09:06→21:02)
[2018-04-14] MEDS: AMLODIPINE 5 MG TAB PO (09:07)
[2018-04-14] MEDS: LACTOBACILLUS RHAMNOSUS CAP PO ×2 (09:07→21:02)
[2018-04-14] MEDS: LISINOPRIL 20 MG TAB PO (09:07)
[2018-04-14] MEDS: DOXYCYCLINE 100 MG TAB PO ×2 (09:07→21:02)
[2018-04-14] MEDS: LINAGLIPTIN 5 MG TABLET PO (09:07)
[2018-04-14] MEDS: METOPROLOL 50 MG TAB PO ×2 (09:07→21:03)
[2018-04-14] MEDS: FLUOCINONIDE 0.05% 15 GM CR TOP ×3 (09:12→21:02)
[2018-04-14 11:18] LABS: TROPONIN-I 0.456 ng/ml (0.000-0.120)
[2018-04-14] MEDS: ATORVASTATIN 40 MG TAB PO (21:02)
[2018-04-15] MEDS: HYDROmorphONE 1 MG/ML SYG IV ×3 (00:34→09:48)
[2018-04-15] MEDS: ACCU-CHEK XX (02:00)
[2018-04-15] MEDS: OXYCODONE/ACETAMINOPHEN (10/325) TAB PO (02:36)
[2018-04-15] MEDS: LEVOFLOXACIN 500 MG TAB PO (05:47)
[2018-04-15] MEDS: INSULIN GLARGINE [LANTus] (100 UNITS/ML) SYG SC (05:55)
[2018-04-15 06:08] LABS: ADD MAN DIFF? NO
[2018-04-15 06:11] LABS: WHITE BLOOD COUNT 13.8 10^3/ul (4.8-10.8)
[2018-04-15 06:11] LABS: BASOPHIL # 0.1 10^3/ul (0.0-0.1); BASOPHILS % 0.7 % (0.0-2.0); EOSINOPHILS # 0.5 10^3/ul (0.0-0.5); EOSINOPHILS % 3.5 % (0.0-7.0); HEMATOCRIT 43.6 % (42.0-52.0); HEMOGLOBIN 13.7 g/dl (14.0-18.0); LYMPHOCYTES # 3.2 10^3/ul (0.8-2.9); LYMPHOCYTES % 22.9 % (15.0-51.0); MEAN CORPUSCULAR HEMOGLOBIN 28.7 pg (29.0-33.0); MEAN CORPUSCULAR HGB CONC 31.4 g/dl (32.0-37.0); MEAN CORPUSCULAR VOLUME 91.2 fl (82.0-101.0); MEAN PLATELET VOLUME 11.3 fl (7.4-10.4); NEUTROPHILS % 65.4 % (39.0-77.0); PLATELET COUNT 328 10^3/UL (140-415); RED BLOOD COUNT 4.78 10^6/ul (4.70-6.10); RED CELL DISTRIBUTION WIDTH 12.5 % (11.5-14.5)
[2018-04-15 06:46] LABS: ANION GAP 4 (5-13); BLOOD UREA NITROGEN 16 mg/dl (7-20); CALCIUM 8.9 mg/dl (8.4-10.2); CARBON DIOXIDE 29 mmol/L (21-31); CHLORIDE 105 mmol/L (97-110); Estimated GFR > 60 mL/min (>60); GLUCOSE 201 mg/dl (70-220); MAGNESIUM 1.8 mg/dl (1.7-2.5); PHOSPHORUS 3.6 mg/dl (2.5-4.9); POTASSIUM 4.1 mmol/L (3.5-5.1); SODIUM 138 mmol/L (135-144)
[2018-04-15] MEDS: INSULIN ASPART [NOVOLOG] 3 ML PEN SC ×4 (08:19→11:50)
[2018-04-15] MEDS: FLUOCINONIDE 0.05% 15 GM CR TOP (09:00)
[2018-04-15] MEDS: ASPIRIN (EC) 81 MG TAB PO (09:44)
[2018-04-15] MEDS: LACTOBACILLUS RHAMNOSUS CAP PO (09:44)
[2018-04-15] MEDS: METOPROLOL 50 MG TAB PO (09:45)
[2018-04-15] MEDS: GABAPENTIN 300 MG CAP PO (09:45)
[2018-04-15] MEDS: LINAGLIPTIN 5 MG TABLET PO (09:46)
[2018-04-15] MEDS: DOXYCYCLINE 100 MG TAB PO (09:46)
[2018-04-15] MEDS: LISINOPRIL 20 MG TAB PO (09:46)
[2018-04-15] MEDS: AMLODIPINE 5 MG TAB PO (09:46)
[2018-04-15] MEDS: ZINC SULFATE 220 MG CAP PO (09:46)
== END 2018-04-15 13:15 | disposition home or self-care (01) | DRG 622 ==
LOC: TEL 04-07 03:52 → E/R 20:53 → TEL 04-07 18:11 → PP2 04-06 01:23
PROVIDERS: Family Medicine
PROC: 0HRKX74 Replacement of Right Lower Leg Skin with Autologous Tissue Substitute, Partial Thickness, External Approach (ICD-10-PCS; principal; 2018-04-07 18:00)
PROC: 0YU90KZ Supplement Right Lower Extremity with Nonautologous Tissue Substitute, Open Approach (ICD-10-PCS; 2018-04-07 18:00)
PROC: 0HBHXZZ Excision of Right Upper Leg Skin, External Approach (ICD-10-PCS; 2018-04-07 18:00)
PROC: 02HV33Z Insertion of Infusion Device into Superior Vena Cava, Percutaneous Approach (ICD-10-PCS; 2018-04-07 18:36)
DX: E11.622 Type 2 diabetes mellitus with other skin ulcer (principal); I21.4 Non-ST elevation (NSTEMI) myocardial infarction; L97.219 Non-pressure chronic ulcer of right calf with unspecified severity; Z68.41 Body mass index [BMI] 40.0-44.9, adult; L03.115 Cellulitis of right lower limb; E66.01 Morbid (severe) obesity due to excess calories; Z86.73 Personal history of transient ischemic attack (TIA), and cerebral infarction without residual deficits; G47.30 Sleep apnea, unspecified; I10 Essential (primary) hypertension; E78.5 Hyperlipidemia, unspecified; G89.29 Other chronic pain; N17.9 Acute kidney failure, unspecified; E11.65 Type 2 diabetes mellitus with hyperglycemia; E11.42 Type 2 diabetes mellitus with diabetic polyneuropathy; E87.5 Hyperkalemia; B95.7 Other staphylococcus as the cause of diseases classified elsewhere; B95.2 Enterococcus as the cause of diseases classified elsewhere; Z16.24 Resistance to multiple antibiotics
CPT/HCPCS: 36415; 36569; 71045; 73700; 76775; 76937; 80048; 80053; 80061; 80069; 80202; 81001; 81003; 82043; 82550; 82553; 82962; 83036; 83690; 83735; 84100; 84155; 84300; 84443; 84484; 85025; 85610; 85730; 87040; 93005; 93306; 93971; 97110; 97116; 97162; 97530; 99285-25

== ENCOUNTER 2018-05-10 12:30 | Emergency (ER) | payer OTHER ==
[2018-05-10 13:31] LABS: ADD MAN DIFF? NO
[2018-05-10 13:36] LABS: BASOPHIL # 0.1 10^3/ul (0.0-0.1); BASOPHILS % 0.7 % (0.0-2.0); EOSINOPHILS # 0.6 10^3/ul (0.0-0.5); EOSINOPHILS % 6.3 % (0.0-7.0); HEMATOCRIT 45.7 % (42.0-52.0); HEMOGLOBIN 14.7 g/dl (14.0-18.0); LYMPHOCYTES # 2.1 10^3/ul (0.8-2.9); LYMPHOCYTES % 23.3 % (15.0-51.0); MEAN CORPUSCULAR HEMOGLOBIN 28.4 pg (29.0-33.0); MEAN CORPUSCULAR HGB CONC 32.2 g/dl (32.0-37.0); MEAN CORPUSCULAR VOLUME 88.2 fl (82.0-101.0); MEAN PLATELET VOLUME 11.2 fl (7.4-10.4); MONOCYTE # 0.8 10^3/ul (0.3-0.9); MONOCYTES % 8.8 % (0.0-11.0); NEUTROPHIL # 5.5 10^3/ul (1.6-7.5); NEUTROPHILS % 60.7 % (39.0-77.0); PLATELET COUNT 331 10^3/UL (140-415); RED BLOOD COUNT 5.18 10^6/ul (4.70-6.10); RED CELL DISTRIBUTION WIDTH 12.6 % (11.5-14.5)
[2018-05-10 13:54] LABS: ANION GAP 11 (5-13); BLOOD UREA NITROGEN 20 mg/dl (7-20); CALCIUM 9.7 mg/dl (8.4-10.2); CARBON DIOXIDE 26 mmol/L (21-31); CHLORIDE 99 mmol/L (97-110); CREATININE 0.97 mg/dl (0.61-1.24); Estimated GFR > 60 mL/min (>60); POTASSIUM 4.4 mmol/L (3.5-5.1); SODIUM 136 mmol/L (135-144)
[2018-05-10 13:56] LABS: GLUCOSE 421 mg/dl (70-220)
[2018-05-10 14:05] LABS: TROPONIN-I 0.056 ng/ml (0.000-0.120)
[2018-05-10] MEDS: HYDROCODONE/APAP (5/325) TAB PO (14:36)
== END 2018-05-10 14:58 | disposition home or self-care (01) ==
LOC: E/R 12:30
DX: E66.01 Morbid (severe) obesity due to excess calories (principal); L97.919 Non-pressure chronic ulcer of unspecified part of right lower leg with unspecified severity; E11.9 Type 2 diabetes mellitus without complications; I10 Essential (primary) hypertension; Z68.41 Body mass index [BMI] 40.0-44.9, adult; Z79.4 Long term (current) use of insulin; Z79.82 Long term (current) use of aspirin
CPT/HCPCS: 36415; 71045; 80048; 84484; 85025; 93005; 99285-25

== ENCOUNTER 2018-05-31 15:05 | Observation (INO) | payer OTHER ==
[2018-05-31 18:11] LABS: ADD MAN DIFF? NO
[2018-05-31 18:23] LABS: BASOPHIL # 0.1 10^3/ul (0.0-0.1); BASOPHILS % 0.8 % (0.0-2.0); EOSINOPHILS # 0.6 10^3/ul (0.0-0.5); EOSINOPHILS % 5.2 % (0.0-7.0); HEMATOCRIT 42.1 % (42.0-52.0); HEMOGLOBIN 13.5 g/dl (14.0-18.0); LYMPHOCYTES # 3.4 10^3/ul (0.8-2.9); LYMPHOCYTES % 27.7 % (15.0-51.0); MEAN CORPUSCULAR HEMOGLOBIN 28.4 pg (29.0-33.0); MEAN CORPUSCULAR HGB CONC 32.1 g/dl (32.0-37.0); MEAN CORPUSCULAR VOLUME 88.6 fl (82.0-101.0); MEAN PLATELET VOLUME 11.3 fl (7.4-10.4); PLATELET COUNT 416 10^3/UL (140-415); RED BLOOD COUNT 4.75 10^6/ul (4.70-6.10); RED CELL DISTRIBUTION WIDTH 12.8 % (11.5-14.5)
[2018-05-31 18:23] LABS: WHITE BLOOD COUNT 12.1 10^3/ul (4.8-10.8)
[2018-05-31] MEDS: HYDROmorphONE 0.5 MG/0.5 ML SYG IV ×2 (18:34→20:29)
[2018-05-31] MEDS: ONDANSETRON 4 MG INJ IV (18:34)
[2018-05-31 18:43] LABS: ANION GAP 13 (5-13); BLOOD UREA NITROGEN 21 mg/dl (7-20); CALCIUM 9.7 mg/dl (8.4-10.2); CARBON DIOXIDE 26 mmol/L (21-31); CHLORIDE 100 mmol/L (97-110); CREATININE 1.09 mg/dl (0.61-1.24); Estimated GFR > 60 mL/min (>60); GLUCOSE 299 mg/dl (70-220); INR 0.91; PARTIAL THROMBOPLASTIN TIME 28.7 Sec (23.0-35.0); POTASSIUM 4.6 mmol/L (3.5-5.1); PROTIME 12.4 Sec (11.9-14.9); SODIUM 139 mmol/L (135-144)
[2018-05-31] MEDS ORDERED: GLUCAGON 1 MG INJ IM (22:30)
[2018-05-31] MEDS ORDERED: HYDROCODONE/APAP (5/325) TAB PO (22:30)
[2018-05-31] MEDS ORDERED: NACL 0.9% 3 ML SYG IV (22:30)
[2018-05-31] MEDS ORDERED: ONDANSETRON 4 MG INJ IV (22:30)
[2018-05-31] MEDS ORDERED: GLUCOSE GEL 15 GRAM TUBE PO ×2 (22:30)
[2018-05-31] MEDS ORDERED: DEXTROSE 50% 50 ML SYRINGE IV ×2 (22:30)
[2018-05-31] MEDS ORDERED: ACETAMINOPHEN 325 MG TAB PO (22:30)
[2018-05-31] MEDS ORDERED: GLUCOSE GEL 15 GRAM TUBE BUCCAL (22:30)
[2018-05-31] MEDS: DIPHENHYDRAMINE 50 MG CAP PO (22:52)
[2018-05-31] MEDS: HYDROmorphONE 1 MG/ML SYG IV (22:52)
[2018-06-01] MEDS: INSULIN GLARGINE [LANTus] (100 UNITS/ML) SYG SC ×3 (00:11→22:14)
[2018-06-01] MEDS: HYDROCODONE/APAP (10/325) TAB PO ×3 (00:12→18:20)
[2018-06-01] MEDS: ACCU-CHEK XX (02:00)
[2018-06-01] MEDS: HYDROmorphONE 2 MG/ML SYG IV ×4 (02:54→15:07)
[2018-06-01 06:17] LABS: ADD MAN DIFF? NO
[2018-06-01 06:24] LABS: BASOPHIL # 0.1 10^3/ul (0.0-0.1); BASOPHILS % 0.9 % (0.0-2.0); EOSINOPHILS # 0.8 10^3/ul (0.0-0.5); EOSINOPHILS % 6.5 % (0.0-7.0); HEMATOCRIT 42.6 % (42.0-52.0); HEMOGLOBIN 13.5 g/dl (14.0-18.0); LYMPHOCYTES # 3.5 10^3/ul (0.8-2.9); LYMPHOCYTES % 29.3 % (15.0-51.0); MEAN CORPUSCULAR HEMOGLOBIN 28.1 pg (29.0-33.0); MEAN CORPUSCULAR HGB CONC 31.7 g/dl (32.0-37.0); MEAN CORPUSCULAR VOLUME 88.8 fl (82.0-101.0); MONOCYTES % 8.1 % (0.0-11.0); NEUTROPHIL # 6.5 10^3/ul (1.6-7.5); NEUTROPHILS % 54.9 % (39.0-77.0); PLATELET COUNT 415 10^3/UL (140-415); RED CELL DISTRIBUTION WIDTH 13.1 % (11.5-14.5)
[2018-06-01 06:24] LABS: WHITE BLOOD COUNT 11.8 10^3/ul (4.8-10.8)
[2018-06-01 06:51] LABS: ALANINE AMINOTRANSFERASE 20 IU/L (13-69); ALBUMIN 3.9 g/dl (3.3-4.9); ALBUMIN/GLOBULIN RATIO 1.11; ALKALINE PHOSPHATASE 74 IU/L (42-121); ANION GAP 13 (5-13); ASPARTATE AMINO TRANSFERASE 30 IU/L (15-46); BILIRUBIN,INDIRECT 0.3 mg/dl (0-1.1); BILIRUBIN,TOTAL 0.3 mg/dl (0.2-1.3); BLOOD UREA NITROGEN 20 mg/dl (7-20); CALCIUM 9.5 mg/dl (8.4-10.2); CARBON DIOXIDE 26 mmol/L (21-31); CHLORIDE 101 mmol/L (97-110); CHOL/HDL RATIO 3.4 RATIO; CHOLESTEROL 101 mg/dl (100-200); CREATININE 1.12 mg/dl (0.61-1.24); Estimated GFR > 60 mL/min (>60); GLUCOSE 190 mg/dl (70-220); HDL CHOLESTEROL 29 mg/dl (28-71); LDL CHOLESTEROL,CALCULATED 43 mg/dl; MAGNESIUM 1.7 mg/dl (1.7-2.5); POTASSIUM 4.4 mmol/L (3.5-5.1); SODIUM 140 mmol/L (135-144); TOTAL PROTEIN 7.4 g/dl (6.1-8.1); TRIGLYCERIDES 143 mg/dl (0-149)
[2018-06-01] MEDS: DIPHENHYDRAMINE 50 MG CAP PO (07:08)
[2018-06-01 07:11] LABS: HEMOGLOBIN A1C 11.3 % (0-5.9)
[2018-06-01] MEDS: INSULIN ASPART [NOVOLOG] 3 ML PEN SC ×5 (08:26→21:00)
[2018-06-01] MEDS: GABAPENTIN 300 MG CAP PO ×3 (08:27→21:10)
[2018-06-01] MEDS: HYDROCHLOROTHIAZIDE 25 MG TAB PO (08:28)
[2018-06-01] MEDS: LISINOPRIL 20 MG TAB PO (08:28)
[2018-06-01] MEDS: AMLODIPINE 5 MG TAB PO (08:28)
[2018-06-01] MEDS: DIPHENHYDRAMINE 50 MG INJ IV ×2 (10:32→17:36)
[2018-06-01] MEDS: ASPIRIN (EC) 81 MG TAB PO (12:04)
[2018-06-01] MEDS: CLOPIDOGREL 75 MG TAB PO (12:04)
[2018-06-01] MEDS: metFORMIN (XR) 500 MG TAB PO (17:38)
[2018-06-01] MEDS: METHADONE (1 MG/ML 5 ML PO UD SYG) PO (20:58)
[2018-06-01] MEDS: HYDROmorphONE 1 MG/ML SYG IV (20:58)
[2018-06-01] MEDS: ATORVASTATIN 80 MG TAB PO (21:10)
[2018-06-01] MEDS: morphine (ER) 15 MG TAB PO (22:13)
[2018-06-02] MEDS: METHADONE (1 MG/ML 5 ML PO UD SYG) PO ×4 (00:37→18:00)
[2018-06-02] MEDS: ACCU-CHEK XX (01:25)
[2018-06-02] MEDS: HYDROmorphONE 1 MG/ML SYG IV ×2 (07:45→14:27)
[2018-06-02] MEDS: GABAPENTIN 300 MG CAP PO ×2 (08:15→12:39)
[2018-06-02] MEDS: HYDROCHLOROTHIAZIDE 25 MG TAB PO (08:16)
[2018-06-02] MEDS: EMPAGLIFLOZIN 10 MG TABLET PO (08:16)
[2018-06-02] MEDS: LISINOPRIL 20 MG TAB PO (08:16)
[2018-06-02] MEDS: CLOPIDOGREL 75 MG TAB PO (08:16)
[2018-06-02] MEDS: INSULIN ASPART [NOVOLOG] 3 ML PEN SC ×7 (08:17→17:19)
[2018-06-02] MEDS: AMLODIPINE 5 MG TAB PO (08:18)
[2018-06-02] MEDS: ASPIRIN (EC) 81 MG TAB PO (08:18)
[2018-06-02] MEDS: COLLAGENASE 5 GM (UD JAR) TOP (08:21)
[2018-06-02] MEDS: SODIUM HYPOCHLORITE (1/40) 1 APPLIC BTL IRR (08:21)
[2018-06-02] MEDS: LINAGLIPTIN 5 MG TABLET PO (08:24)
[2018-06-02] MEDS: DIPHENHYDRAMINE 50 MG INJ IV ×2 (08:25→14:27)
[2018-06-02] MEDS: morphine (ER) 15 MG TAB PO (09:11)
[2018-06-02 14:42] LABS: ADD MAN DIFF? NO
[2018-06-02 14:47] LABS: BASOPHIL # 0.1 10^3/ul (0.0-0.1); BASOPHILS % 0.8 % (0.0-2.0); EOSINOPHILS # 0.8 10^3/ul (0.0-0.5); EOSINOPHILS % 7.6 % (0.0-7.0); HEMOGLOBIN 13.8 g/dl (14.0-18.0); LYMPHOCYTES # 2.8 10^3/ul (0.8-2.9); LYMPHOCYTES % 26.6 % (15.0-51.0); MEAN CORPUSCULAR HEMOGLOBIN 28.6 pg (29.0-33.0); MEAN CORPUSCULAR HGB CONC 32.1 g/dl (32.0-37.0); MEAN CORPUSCULAR VOLUME 89.2 fl (82.0-101.0); MEAN PLATELET VOLUME 11.1 fl (7.4-10.4); MONOCYTE # 0.8 10^3/ul (0.3-0.9); MONOCYTES % 7.1 % (0.0-11.0); NEUTROPHIL # 6.1 10^3/ul (1.6-7.5); NEUTROPHILS % 57.5 % (39.0-77.0); PLATELET COUNT 412 10^3/UL (140-415); RED BLOOD COUNT 4.82 10^6/ul (4.70-6.10); RED CELL DISTRIBUTION WIDTH 12.9 % (11.5-14.5)
[2018-06-02 14:47] LABS: WHITE BLOOD COUNT 10.6 10^3/ul (4.8-10.8)
[2018-06-02 15:05] LABS: ALANINE AMINOTRANSFERASE 28 IU/L (13-69); ALBUMIN 4.2 g/dl (3.3-4.9); ALKALINE PHOSPHATASE 86 IU/L (42-121); ANION GAP 14 (5-13); ASPARTATE AMINO TRANSFERASE 38 IU/L (15-46); BILIRUBIN,INDIRECT 0.3 mg/dl (0-1.1); BILIRUBIN,TOTAL 0.3 mg/dl (0.2-1.3); BLOOD UREA NITROGEN 27 mg/dl (7-20); CALCIUM 9.7 mg/dl (8.4-10.2); CARBON DIOXIDE 25 mmol/L (21-31); CHLORIDE 100 mmol/L (97-110); CHOL/HDL RATIO 3.9 RATIO; CHOLESTEROL 114 mg/dl (100-200); CREATININE 1.36 mg/dl (0.61-1.24); Estimated GFR 56 mL/min (>60); GLUCOSE 104 mg/dl (70-220); HDL CHOLESTEROL 29 mg/dl (28-71); LDL CHOLESTEROL,CALCULATED 50 mg/dl; MAGNESIUM 1.9 mg/dl (1.7-2.5); POTASSIUM 4.1 mmol/L (3.5-5.1); SODIUM 139 mmol/L (135-144); TOTAL PROTEIN 7.7 g/dl (6.1-8.1); TRIGLYCERIDES 173 mg/dl (0-149)
[2018-06-02 15:13] LABS: B-TYPE NATRIURETIC PEPTIDE 388 PG/ML (0-125)
[2018-06-02] MEDS ORDERED: INSULIN GLARGINE [LANTus] (100 UNITS/ML) SYG SC (21:00)
== END 2018-06-02 19:30 | disposition home or self-care (01) ==
LOC: E/R 15:05 → PP2 19:07
DX: L76.21 Postprocedural hemorrhage of skin and subcutaneous tissue following a dermatologic procedure (principal); E11.621 Type 2 diabetes mellitus with foot ulcer; L97.819 Non-pressure chronic ulcer of other part of right lower leg with unspecified severity; D64.9 Anemia, unspecified; I10 Essential (primary) hypertension; E11.65 Type 2 diabetes mellitus with hyperglycemia; Z79.4 Long term (current) use of insulin; E78.5 Hyperlipidemia, unspecified; G47.30 Sleep apnea, unspecified; Z79.82 Long term (current) use of aspirin; E11.42 Type 2 diabetes mellitus with diabetic polyneuropathy; I25.10 Atherosclerotic heart disease of native coronary artery without angina pectoris; Z86.73 Personal history of transient ischemic attack (TIA), and cerebral infarction without residual deficits; Z95.5 Presence of coronary angioplasty implant and graft
CPT/HCPCS: 80048; 80053; 80061; 82962; 83015; 83036; 83735; 83880; 84443; 85025; 85610; 85730; 93306; 96374; 96375; 99285-25; G0378

== ENCOUNTER 2018-07-17 11:01 | Inpatient (IN) | payer OTHER ==
[2018-07-17 16:10] LABS: ADD MAN DIFF? NO
[2018-07-17] MEDS: NITROGLYCERIN 2% 1 GM OINT PKT TD (16:11)
[2018-07-17] MEDS: ASPIRIN 81 MG TAB PO (16:15)
[2018-07-17 16:27] LABS: BASOPHIL # 0.1 10^3/ul (0.0-0.1); EOSINOPHILS # 1.1 10^3/ul (0.0-0.5); EOSINOPHILS % 9.7 % (0.0-7.0); HEMATOCRIT 44.7 % (42.0-52.0); HEMOGLOBIN 14.4 g/dl (14.0-18.0); LYMPHOCYTES # 2.9 10^3/ul (0.8-2.9); LYMPHOCYTES % 26.8 % (15.0-51.0); MEAN CORPUSCULAR HEMOGLOBIN 28.9 pg (29.0-33.0); MEAN CORPUSCULAR HGB CONC 32.2 g/dl (32.0-37.0); MEAN CORPUSCULAR VOLUME 89.8 fl (82.0-101.0); MONOCYTE # 0.9 10^3/ul (0.3-0.9); MONOCYTES % 8.5 % (0.0-11.0); NEUTROPHIL # 5.9 10^3/ul (1.6-7.5); NEUTROPHILS % 53.7 % (39.0-77.0); PLATELET COUNT 318 10^3/UL (140-415); RED BLOOD COUNT 4.98 10^6/ul (4.70-6.10); RED CELL DISTRIBUTION WIDTH 14.2 % (11.5-14.5)
[2018-07-17] MEDS: HYDROCODONE/APAP (10/325) TAB PO (16:39)
[2018-07-17 16:44] LABS: ANION GAP 13 (5-13); BLOOD UREA NITROGEN 32 mg/dl (7-20); CALCIUM 10.1 mg/dl (8.4-10.2); CARBON DIOXIDE 21 mmol/L (21-31); CHLORIDE 102 mmol/L (97-110); CREATININE 1.37 mg/dl (0.61-1.24); Estimated GFR 55 mL/min (>60); GLUCOSE 283 mg/dl (70-220); SODIUM 136 mmol/L (135-144)
[2018-07-17 16:55] LABS: TROPONIN-I < 0.012 ng/ml (0.000-0.120)
[2018-07-17] MEDS ORDERED: ALBUTEROL/IPRATROPIUM (NEB) 3 ML AMP HHN (19:00)
[2018-07-17] MEDS ORDERED: ACETAMINOPHEN 325 MG TAB PO (19:00)
[2018-07-17] MEDS ORDERED: DOCUSATE SODIUM 100 MG CAP PO (19:00)
[2018-07-17] MEDS ORDERED: LORAZEPAM 2 MG INJ IV (19:00)
[2018-07-17] MEDS ORDERED: INSULIN GLARGINE [LANtus] 3 ML PEN SC (19:00)
[2018-07-17] MEDS ORDERED: MAGNESIUM HYDROXIDE 30ML CUP PO (19:00)
[2018-07-17] MEDS ORDERED: NACL 0.9% 3 ML SYG IV (19:00)
[2018-07-17] MEDS ORDERED: NITROGLYCERIN (SL) 0.4 MG TAB SL (19:00)
[2018-07-17] MEDS: morphine 2 MG INJ IV (19:31)
[2018-07-17] MEDS: ONDANSETRON 4 MG INJ IV (19:31)
[2018-07-17 19:57] LABS: CREATINE KINASE 126 IU/L (23-200)
[2018-07-17 20:06] LABS: INR 0.86; PROTIME 11.8 Sec (11.9-14.9); PT RATIO 0.9
[2018-07-17 20:07] LABS: PARTIAL THROMBOPLASTIN TIME 28.3 Sec (23.0-35.0)
[2018-07-17] MEDS: DIPHENHYDRAMINE 25 MG CAP PO (20:09)
[2018-07-17 20:10] LABS: CK-MB 2.63 ng/ml (0.0-2.4)
[2018-07-17 20:13] LABS: FREE T4 (FREE THYROXINE) 1.46 ng/dl (0.64-1.79)
[2018-07-17] MEDS: INSULIN ASPART [NOVOLOG] 3 ML PEN SC ×2 (22:00→22:41)
[2018-07-17] MEDS: ATORVASTATIN 80 MG TAB PO (22:43)
[2018-07-17] MEDS: HYDROCODONE/APAP (5/325) TAB PO (22:44)
[2018-07-17] MEDS: ISOSORBIDE DINITRATE 10 MG TAB PO (22:44)
[2018-07-17] MEDS: GABAPENTIN 300 MG CAP PO (22:45)
[2018-07-17] MEDS: INSULIN GLARGINE [LANTus] (100 UNITS/ML) SYG SC (22:46)
[2018-07-17 23:31] LABS: CREATINE KINASE 126 IU/L (23-200)
[2018-07-17 23:43] LABS: CK INDEX 2.9; CK-MB 3.61 ng/ml (0.0-2.4); TROPONIN-I < 0.012 ng/ml (0.000-0.120)
[2018-07-18] MEDS: DIPHENHYDRAMINE 50 MG INJ IV ×3 (00:41→17:34)
[2018-07-18] MEDS: INSULIN ASPART [NOVOLOG] 3 ML PEN SC ×10 (01:00→23:55)
[2018-07-18] MEDS: morphine 2 MG INJ IV ×3 (01:56→18:12)
[2018-07-18] MEDS: ACCU-CHEK XX (02:00)
[2018-07-18] MEDS: HYDROCODONE/APAP (5/325) TAB PO (04:44)
[2018-07-18] MEDS: DIPHENHYDRAMINE 25 MG CAP PO ×2 (05:43→11:53)
[2018-07-18] MEDS ORDERED: DIPHENHYDRAMINE 50 MG INJ ×2 (07:37→12:37)
[2018-07-18] MEDS ORDERED: LIDOCAINE 1% (MDV) 20 ML INJ (07:45)
[2018-07-18] MEDS ORDERED: IODIXANOL LOCM 100 ML BTL (07:45)
[2018-07-18] MEDS ORDERED: HEPARIN 1000 UNITS/ML 10 ML INJ (07:45)
[2018-07-18] MEDS ORDERED: MIDAZOLAM 1 MG/ML 2 ML INJ (07:46)
[2018-07-18] MEDS ORDERED: NITROGLYCERIN (IC) 100 MCG/ML INJ (07:46)
[2018-07-18] MEDS ORDERED: FENTAnyl 50 MCG/ML VIAL (07:46)
[2018-07-18] MEDS ORDERED: VERAPAMIL 5 MG INJ (07:46)
[2018-07-18 08:34] LABS: HEMOGLOBIN A1C 10.2 % (0-5.9)
[2018-07-18 08:38] LABS: CHOL/HDL RATIO 4.5 RATIO; HDL CHOLESTEROL 31 mg/dl (28-71); LDL CHOLESTEROL,CALCULATED 57 mg/dl; TRIGLYCERIDES 271 mg/dl (0-149)
[2018-07-18 08:38] LABS: CHOLESTEROL 142 mg/dl (100-200)
[2018-07-18 08:40] LABS: ANION GAP 10 (5-13); BLOOD UREA NITROGEN 41 mg/dl (7-20); CALCIUM 9.3 mg/dl (8.4-10.2); CARBON DIOXIDE 24 mmol/L (21-31); CHLORIDE 104 mmol/L (97-110); CREATINE KINASE 119 IU/L (23-200); CREATININE 1.72 mg/dl (0.61-1.24); Estimated GFR 42 mL/min (>60); GLUCOSE 136 mg/dl (70-220); MAGNESIUM 1.9 mg/dl (1.7-2.5); PHOSPHORUS 7.1 mg/dl (2.5-4.9); POTASSIUM 4.4 mmol/L (3.5-5.1); SODIUM 138 mmol/L (135-144)
[2018-07-18 08:44] LABS: ADD MAN DIFF? NO
[2018-07-18 08:51] LABS: CK INDEX 2.2; TROPONIN-I < 0.012 ng/ml (0.000-0.120)
[2018-07-18] MEDS: ISOSORBIDE DINITRATE 10 MG TAB PO ×3 (09:00→21:33)
[2018-07-18] MEDS ORDERED: AMLODIPINE 5 MG TAB PO (09:00)
[2018-07-18] MEDS: GABAPENTIN 300 MG CAP PO ×3 (09:00→21:33)
[2018-07-18] MEDS ORDERED: ASPIRIN (EC) 325 MG TAB PO (09:00)
[2018-07-18] MEDS ORDERED: ASPIRIN (EC) 81 MG TAB PO (09:00)
[2018-07-18 09:08] LABS: BASOPHIL # 0.1 10^3/ul (0.0-0.1); EOSINOPHILS % 8.2 % (0.0-7.0); HEMATOCRIT 41.9 % (42.0-52.0); HEMOGLOBIN 13.4 g/dl (14.0-18.0); LYMPHOCYTES # 3.5 10^3/ul (0.8-2.9); LYMPHOCYTES % 28.4 % (15.0-51.0); MEAN CORPUSCULAR HEMOGLOBIN 28.6 pg (29.0-33.0); MEAN CORPUSCULAR VOLUME 89.3 fl (82.0-101.0); MEAN PLATELET VOLUME 11.3 fl (7.4-10.4); MONOCYTE # 1.1 10^3/ul (0.3-0.9); MONOCYTES % 9.1 % (0.0-11.0); NEUTROPHIL # 6.4 10^3/ul (1.6-7.5); NEUTROPHILS % 52.9 % (39.0-77.0); PLATELET COUNT 304 10^3/UL (140-415); RED BLOOD COUNT 4.69 10^6/ul (4.70-6.10); RED CELL DISTRIBUTION WIDTH 14.2 % (11.5-14.5)
[2018-07-18 09:08] LABS: WHITE BLOOD COUNT 12.1 10^3/ul (4.8-10.8)
[2018-07-18 09:18] LABS: CK-MB 2.65 ng/ml (0.0-2.4)
[2018-07-18] MEDS ORDERED: CLOPIDOGREL 300 MG TAB (09:29)
[2018-07-18] MEDS: SOD CHLORIDE 0.9% 1,000 ML IV (10:54)
[2018-07-18] MEDS: CLOPIDOGREL 75 MG TAB PO (14:30)
[2018-07-18] MEDS: COLLAGENASE 5 GM (UD JAR) TOP (14:45)
[2018-07-18] MEDS: ASPIRIN (EC) 81 MG TAB PO (14:58)
[2018-07-18] MEDS: INSULIN GLARGINE [LANTus] (100 UNITS/ML) SYG SC (21:00)
[2018-07-18] MEDS: ATORVASTATIN 80 MG TAB PO (21:33)
[2018-07-19] MEDS: DIPHENHYDRAMINE 50 MG INJ IV (00:08)
[2018-07-19] MEDS: ACCU-CHEK XX (02:00)
[2018-07-19] MEDS: INSULIN ASPART [NOVOLOG] 3 ML PEN SC ×8 (05:00→21:00)
[2018-07-19] MEDS: hydrALAzine 20 MG INJ IV (08:33)
[2018-07-19] MEDS: ASPIRIN (EC) 81 MG TAB PO ×2 (09:00→13:29)
[2018-07-19] MEDS: COLLAGENASE 5 GM (UD JAR) TOP (09:00)
[2018-07-19] MEDS: ISOSORBIDE DINITRATE 10 MG TAB PO ×3 (09:00→21:40)
[2018-07-19] MEDS: GABAPENTIN 300 MG CAP PO ×3 (09:00→21:39)
[2018-07-19] MEDS: CLOPIDOGREL 75 MG TAB PO ×2 (09:00→13:29)
[2018-07-19 13:22] LABS: ADD MAN DIFF? NO
[2018-07-19 13:26] LABS: WHITE BLOOD COUNT 9.7 10^3/ul (4.8-10.8)
[2018-07-19 13:26] LABS: BASOPHIL # 0.1 10^3/ul (0.0-0.1); BASOPHILS % 0.7 % (0.0-2.0); EOSINOPHILS # 0.7 10^3/ul (0.0-0.5); EOSINOPHILS % 7.6 % (0.0-7.0); HEMATOCRIT 44.1 % (42.0-52.0); HEMOGLOBIN 14.3 g/dl (14.0-18.0); LYMPHOCYTES # 1.9 10^3/ul (0.8-2.9); LYMPHOCYTES % 19.2 % (15.0-51.0); MEAN CORPUSCULAR HEMOGLOBIN 28.6 pg (29.0-33.0); MEAN CORPUSCULAR HGB CONC 32.4 g/dl (32.0-37.0); MEAN CORPUSCULAR VOLUME 88.2 fl (82.0-101.0); MONOCYTE # 0.7 10^3/ul (0.3-0.9); MONOCYTES % 7.5 % (0.0-11.0); NEUTROPHIL # 6.3 10^3/ul (1.6-7.5); NEUTROPHILS % 64.6 % (39.0-77.0); PLATELET COUNT 308 10^3/UL (140-415); RED CELL DISTRIBUTION WIDTH 14.1 % (11.5-14.5)
[2018-07-19] MEDS: HYDROCODONE/APAP (5/325) TAB PO (13:30)
[2018-07-19 13:49] LABS: ANION GAP 9 (5-13); BLOOD UREA NITROGEN 22 mg/dl (7-20); CALCIUM 9.4 mg/dl (8.4-10.2); CARBON DIOXIDE 26 mmol/L (21-31); CHLORIDE 106 mmol/L (97-110); Estimated GFR > 60 mL/min (>60); GLUCOSE 147 mg/dl (70-220); POTASSIUM 4.1 mmol/L (3.5-5.1); SODIUM 141 mmol/L (135-144)
[2018-07-19] MEDS: morphine 2 MG INJ IV ×2 (16:20→21:39)
[2018-07-19] MEDS: INSULIN GLARGINE [LANTus] (100 UNITS/ML) SYG SC (21:00)
[2018-07-19] MEDS: ATORVASTATIN 80 MG TAB PO (21:39)
[2018-07-20] MEDS: INSULIN ASPART [NOVOLOG] 3 ML PEN SC ×6 (01:00→12:30)
[2018-07-20] MEDS ORDERED: DEXTROSE 50% 50 ML SYRINGE IV ×2 (02:30)
[2018-07-20] MEDS ORDERED: GLUCOSE GEL 15 GRAM TUBE BUCCAL (02:30)
[2018-07-20] MEDS ORDERED: GLUCAGON 1 MG INJ IM (02:30)
[2018-07-20] MEDS ORDERED: GLUCOSE GEL 15 GRAM TUBE PO ×2 (02:30)
[2018-07-20] MEDS: morphine 2 MG INJ IV ×2 (04:42→08:54)
[2018-07-20] MEDS: INSULIN GLARGINE [LANTus] (100 UNITS/ML) SYG SC (07:54)
[2018-07-20] MEDS: CLOPIDOGREL 75 MG TAB PO (08:20)
[2018-07-20] MEDS: ISOSORBIDE DINITRATE 10 MG TAB PO ×2 (08:20→13:01)
[2018-07-20] MEDS: GABAPENTIN 300 MG CAP PO ×2 (08:20→13:01)
[2018-07-20] MEDS: ASPIRIN (EC) 81 MG TAB PO (08:21)
[2018-07-20] MEDS: GENTAMICIN 0.1% 15 GM OINT TOP (08:21)
[2018-07-20] MEDS: MUPIROCIN 2% 22 GM OINT TOP (08:22)
[2018-07-20] MEDS: DIPHENHYDRAMINE 50 MG INJ IV (08:22)
[2018-07-20] MEDS: COLLAGENASE 5 GM (UD JAR) TOP (08:53)
[2018-07-20 08:56] LABS: ADD MAN DIFF? NO
[2018-07-20 09:00] LABS: WHITE BLOOD COUNT 9.2 10^3/ul (4.8-10.8)
[2018-07-20 09:00] LABS: BASOPHIL # 0.1 10^3/ul (0.0-0.1); EOSINOPHILS # 0.7 10^3/ul (0.0-0.5); EOSINOPHILS % 7.3 % (0.0-7.0); HEMATOCRIT 44.4 % (42.0-52.0); HEMOGLOBIN 14.1 g/dl (14.0-18.0); LYMPHOCYTES # 2.2 10^3/ul (0.8-2.9); LYMPHOCYTES % 23.4 % (15.0-51.0); MEAN CORPUSCULAR HEMOGLOBIN 28.4 pg (29.0-33.0); MEAN CORPUSCULAR HGB CONC 31.8 g/dl (32.0-37.0); MEAN CORPUSCULAR VOLUME 89.5 fl (82.0-101.0); MEAN PLATELET VOLUME 11.2 fl (7.4-10.4); MONOCYTE # 0.7 10^3/ul (0.3-0.9); NEUTROPHIL # 5.5 10^3/ul (1.6-7.5); PLATELET COUNT 299 10^3/UL (140-415); RED BLOOD COUNT 4.96 10^6/ul (4.70-6.10); RED CELL DISTRIBUTION WIDTH 14.2 % (11.5-14.5)
[2018-07-20 09:30] LABS: ANION GAP 7 (5-13); BLOOD UREA NITROGEN 18 mg/dl (7-20); CALCIUM 9.4 mg/dl (8.4-10.2); CARBON DIOXIDE 26 mmol/L (21-31); CHLORIDE 108 mmol/L (97-110); Estimated GFR > 60 mL/min (>60); GLUCOSE 160 mg/dl (70-220); POTASSIUM 4.7 mmol/L (3.5-5.1); SODIUM 141 mmol/L (135-144)
== END 2018-07-20 14:00 | disposition home or self-care (01) | DRG 247 ==
LOC: TEL 17:57 → E/R 11:01 → TEL 07-18 14:13
PROC: 027034Z Dilation of Coronary Artery, One Artery with Drug-eluting Intraluminal Device, Percutaneous Approach (ICD-10-PCS; principal; 2018-07-18 07:31)
PROC: 4A023N7 Measurement of Cardiac Sampling and Pressure, Left Heart, Percutaneous Approach (ICD-10-PCS; 2018-07-18 07:31)
PROC: B211YZZ Fluoroscopy of Multiple Coronary Arteries using Other Contrast (ICD-10-PCS; 2018-07-18 07:31)
PROC: 4A033BC Measurement of Arterial Pressure, Coronary, Percutaneous Approach (ICD-10-PCS; 2018-07-18 07:31)
DX: I25.10 Atherosclerotic heart disease of native coronary artery without angina pectoris (principal); Z68.41 Body mass index [BMI] 40.0-44.9, adult; L97.319 Non-pressure chronic ulcer of right ankle with unspecified severity; N17.9 Acute kidney failure, unspecified; N18.2 Chronic kidney disease, stage 2 (mild); I25.2 Old myocardial infarction; Z95.5 Presence of coronary angioplasty implant and graft; E78.00 Pure hypercholesterolemia, unspecified; Z87.891 Personal history of nicotine dependence; F15.10 Other stimulant abuse, uncomplicated; E66.01 Morbid (severe) obesity due to excess calories; E11.51 Type 2 diabetes mellitus with diabetic peripheral angiopathy without gangrene; E11.22 Type 2 diabetes mellitus with diabetic chronic kidney disease; I12.9 Hypertensive chronic kidney disease with stage 1 through stage 4 chronic kidney disease, or unspecified chronic kidney disease; E11.21 Type 2 diabetes mellitus with diabetic nephropathy; E11.622 Type 2 diabetes mellitus with other skin ulcer
CPT/HCPCS: 36415; 71045; 80048; 80061; 82550; 82553; 82962; 83036; 83735; 84100; 84439; 84443; 84484; 85025; 85610; 85730; 92928; 93005; 93458; 93571; 99285-25; G0378

== ENCOUNTER 2018-08-04 14:35 | Inpatient (IN) | payer OTHER ==
[2018-08-04] MEDS: HYDROmorphONE 1 MG/ML SYG IV (16:57)
[2018-08-04] MEDS: ONDANSETRON 4 MG INJ IV (16:57)
[2018-08-04] MEDS: PIPER-TAZO 3.375 GM IV (PMX) 100 ML IVPB (16:57)
[2018-08-04 17:01] LABS: ADD MAN DIFF? NO
[2018-08-04 17:05] LABS: BASOPHIL # 0.1 10^3/ul (0.0-0.1); BASOPHILS % 0.9 % (0.0-2.0); EOSINOPHILS # 1.6 10^3/ul (0.0-0.5); EOSINOPHILS % 13.2 % (0.0-7.0); HEMATOCRIT 45.6 % (42.0-52.0); HEMOGLOBIN 14.5 g/dl (14.0-18.0); LYMPHOCYTES # 3.2 10^3/ul (0.8-2.9); LYMPHOCYTES % 25.5 % (15.0-51.0); MEAN CORPUSCULAR HEMOGLOBIN 28.4 pg (29.0-33.0); MEAN CORPUSCULAR HGB CONC 31.8 g/dl (32.0-37.0); MEAN CORPUSCULAR VOLUME 89.2 fl (82.0-101.0); MEAN PLATELET VOLUME 11.4 fl (7.4-10.4); MONOCYTES % 7.8 % (0.0-11.0); NEUTROPHIL # 6.5 10^3/ul (1.6-7.5); NEUTROPHILS % 52.3 % (39.0-77.0); PLATELET COUNT 310 10^3/UL (140-415); RED BLOOD COUNT 5.11 10^6/ul (4.70-6.10); RED CELL DISTRIBUTION WIDTH 14.3 % (11.5-14.5)
[2018-08-04 17:05] LABS: WHITE BLOOD COUNT 12.4 10^3/ul (4.8-10.8)
[2018-08-04 17:23] LABS: ALANINE AMINOTRANSFERASE 26 IU/L (13-69); ALBUMIN 4.3 g/dl (3.3-4.9); ALBUMIN/GLOBULIN RATIO 1.34; ALKALINE PHOSPHATASE 77 IU/L (42-121); ANION GAP 11 (5-13); ASPARTATE AMINO TRANSFERASE 26 IU/L (15-46); BILIRUBIN,INDIRECT 0.4 mg/dl (0-1.1); BILIRUBIN,TOTAL 0.4 mg/dl (0.2-1.3); BLOOD UREA NITROGEN 29 mg/dl (7-20); CALCIUM 9.4 mg/dl (8.4-10.2); CARBON DIOXIDE 26 mmol/L (21-31); CHLORIDE 102 mmol/L (97-110); CREATININE 1.24 mg/dl (0.61-1.24); Estimated GFR > 60 mL/min (>60); GLUCOSE 206 mg/dl (70-220); POTASSIUM 4.2 mmol/L (3.5-5.1); SODIUM 139 mmol/L (135-144); TOTAL PROTEIN 7.5 g/dl (6.1-8.1)
[2018-08-04 17:24] LABS: INR 0.85; PROTIME 11.7 Sec (11.9-14.9); PT RATIO 0.9
[2018-08-04 17:25] LABS: PARTIAL THROMBOPLASTIN TIME 24.2 Sec (23.0-35.0)
[2018-08-04] MEDS ORDERED: LORAZEPAM 0.5 MG TAB PO (17:30)
[2018-08-04] MEDS ORDERED: ACETAMINOPHEN 325 MG TAB PO ×2 (17:30)
[2018-08-04] MEDS ORDERED: ONDANSETRON 4 MG INJ IV (17:30)
[2018-08-04] MEDS ORDERED: VANCOMYCIN IV PER PHARMACY XX (17:30)
[2018-08-04] MEDS ORDERED: hydrALAzine 20 MG INJ IV (17:30)
[2018-08-04] MEDS ORDERED: NACL 0.9% 3 ML SYG IV (17:30)
[2018-08-04 17:34] LABS: TROPONIN-I < 0.012 ng/ml (0.000-0.120)
[2018-08-04] MEDS: INSULIN ASPART [NOVOLOG] 3 ML PEN SC ×3 (18:00→22:19)
[2018-08-04] MEDS: VANCOMYCIN 1 GM (PMX) 250 ML IVPB (18:23)
[2018-08-04] MEDS: DIPHENHYDRAMINE 50 MG INJ IV (18:52)
[2018-08-04] MEDS: HYDROmorphONE 2 MG/ML SYG IV (18:52)
[2018-08-04 19:10] LABS: LACTIC ACID 1.7 mmol/L (0.5-2.0)
[2018-08-04] MEDS: CALAMINE/PRAMOXINE LOT 180 ML BTL TOP (21:00)
[2018-08-04] MEDS: ATORVASTATIN 80 MG TAB PO (21:00)
[2018-08-04] MEDS: CALAMINE 170 ML LOT TOP (21:00)
[2018-08-04] MEDS ORDERED: INSULIN GLARGINE [LANtus] 3 ML PEN SC (21:00)
[2018-08-04] MEDS ORDERED: CALAMINE 170 ML LOT TOP (21:00)
[2018-08-04] MEDS: VANCOMYCIN 1 GM in 250 ML IVPB (21:13)
[2018-08-04 21:44] LABS: LACTIC ACID 1.8 mmol/L (0.5-2.0)
[2018-08-04] MEDS: AMLODIPINE 5 MG TAB PO (22:05)
[2018-08-04] MEDS: GABAPENTIN 300 MG CAP PO (22:06)
[2018-08-04] MEDS: ISOSORBIDE DINITRATE 10 MG TAB PO (22:07)
[2018-08-04] MEDS: LISINOPRIL 20 MG TAB PO (22:07)
[2018-08-04] MEDS: INSULIN GLARGINE [LANTus] (100 UNITS/ML) SYG SC (22:18)
[2018-08-04] MEDS: HYDROmorphONE 0.5 MG/0.5 ML SYG IV (22:30)
[2018-08-05] MEDS: PIPER-TAZO 3.375 GM IV (PMX) 100 ML IVPB ×5 (00:43→18:00)
[2018-08-05] MEDS: ACCU-CHEK XX (02:00)
[2018-08-05] MEDS: HYDROmorphONE 0.5 MG/0.5 ML SYG IV ×3 (02:24→21:41)
[2018-08-05] MEDS: DIPHENHYDRAMINE 50 MG INJ IV ×3 (02:26→18:16)
[2018-08-05] MEDS: INSULIN ASPART [NOVOLOG] 3 ML PEN SC ×8 (06:10→21:00)
[2018-08-05] MEDS ORDERED: SEVOFLURANE 15 MIN (07:00)
[2018-08-05 07:51] LABS: ADD MAN DIFF? NO
[2018-08-05 07:57] LABS: WHITE BLOOD COUNT 24.8 10^3/ul (4.8-10.8)
[2018-08-05 07:57] LABS: ABNORMAL IP MESSAGE 1; BASOPHIL # 0.1 10^3/ul (0.0-0.1); BASOPHILS % 0.6 % (0.0-2.0); EOSINOPHILS # 0.7 10^3/ul (0.0-0.5); EOSINOPHILS % 2.7 % (0.0-7.0); HEMATOCRIT 46.7 % (42.0-52.0); HEMOGLOBIN 14.2 g/dl (14.0-18.0); LYMPHOCYTES % 8.1 % (15.0-51.0); MEAN CORPUSCULAR HEMOGLOBIN 28.6 pg (29.0-33.0); MEAN CORPUSCULAR HGB CONC 30.4 g/dl (32.0-37.0); MEAN CORPUSCULAR VOLUME 94.2 fl (82.0-101.0); MEAN PLATELET VOLUME 11.6 fl (7.4-10.4); MONOCYTE # 1.5 10^3/ul (0.3-0.9); MONOCYTES % 6.1 % (0.0-11.0); NEUTROPHIL # 20.3 10^3/ul (1.6-7.5); NEUTROPHILS % 81.8 % (39.0-77.0); PLATELET COUNT 301 10^3/UL (140-415); POSITIVE DIFF @See below; RED BLOOD COUNT 4.96 10^6/ul (4.70-6.10); RED CELL DISTRIBUTION WIDTH 14.5 % (11.5-14.5)
[2018-08-05 08:08] LABS: HEMOGLOBIN A1C 9.9 % (0-5.9)
[2018-08-05 08:17] LABS: ALANINE AMINOTRANSFERASE 36 IU/L (13-69); ALBUMIN 4.2 g/dl (3.3-4.9); ALKALINE PHOSPHATASE 85 IU/L (42-121); ANION GAP 12 (5-13); ASPARTATE AMINO TRANSFERASE 48 IU/L (15-46); BILIRUBIN,INDIRECT 0.4 mg/dl (0-1.1); BILIRUBIN,TOTAL 0.4 mg/dl (0.2-1.3); BLOOD UREA NITROGEN 32 mg/dl (7-20); CALCIUM 8.9 mg/dl (8.4-10.2); CARBON DIOXIDE 23 mmol/L (21-31); CHLORIDE 103 mmol/L (97-110); CREATININE 1.57 mg/dl (0.61-1.24); Estimated GFR 47 mL/min (>60); GLUCOSE 312 mg/dl (70-220); MAGNESIUM 2.3 mg/dl (1.7-2.5); POTASSIUM 5.9 mmol/L (3.5-5.1); SODIUM 138 mmol/L (135-144); TOTAL PROTEIN 7.7 g/dl (6.1-8.1)
[2018-08-05] MEDS: VANCOMYCIN 1 GM in 250 ML IVPB ×2 (08:29→21:41)
[2018-08-05] MEDS: INSULIN GLARGINE [LANTus] (100 UNITS/ML) SYG SC (08:34)
[2018-08-05] MEDS: GABAPENTIN 300 MG CAP PO ×3 (08:34→21:46)
[2018-08-05] MEDS: CLOPIDOGREL 75 MG TAB PO (08:34)
[2018-08-05] MEDS: ASPIRIN 81 MG TAB PO (08:34)
[2018-08-05] MEDS: ISOSORBIDE DINITRATE 10 MG TAB PO ×3 (08:35→21:46)
[2018-08-05] MEDS: CALAMINE/PRAMOXINE LOT 180 ML BTL TOP ×4 (09:00→21:00)
[2018-08-05] MEDS ORDERED: FENTAnyl 50 MCG/ML VIAL (14:58)
[2018-08-05] MEDS ORDERED: LIDOCAINE 2% (SDV) 5 ML INJ (14:59)
[2018-08-05] MEDS ORDERED: PROPOFOL 20 ML (14:59)
[2018-08-05] MEDS ORDERED: POLYMYXIN/BACITRACIN 1L IRRIG (15:06)
[2018-08-05] MEDS ORDERED: LIDOCAINE 1%/EPI (1:100,000) (MDV) 20 ML (15:06)
[2018-08-05] MEDS ORDERED: MINERAL OIL LIGHT 10 ML VIAL (15:44)
[2018-08-05] MEDS: BUPIVACAINE 0.5% (SDV) 30 ML INJ (15:56)
[2018-08-05] MEDS: LIDOCAINE 1% (MPF) 30 ML INJ ×2 (15:57→16:02)
[2018-08-05] MEDS ORDERED: BACITRACIN/POLYMYXIN 28.35 GM OINT TOP (16:16)
[2018-08-05] MEDS ORDERED: MIDAZOLAM 1 MG/ML 2 ML INJ IV (17:00)
[2018-08-05] MEDS ORDERED: MEPERIDINE 25 MG INJ IV (17:00)
[2018-08-05] MEDS ORDERED: ONDANSETRON 4 MG INJ IV (17:00)
[2018-08-05] MEDS ORDERED: EPHEDrine 25 MG/5 ML SYG IV (17:00)
[2018-08-05] MEDS ORDERED: FENTAnyl 50 MCG/ML VIAL IV ×3 (17:00)
[2018-08-05] MEDS ORDERED: DIPHENHYDRAMINE 50 MG INJ IV (17:00)
[2018-08-05] MEDS ORDERED: METOCLOPRAMIDE 10 MG INJ IV (17:00)
[2018-08-05] MEDS ORDERED: ALBUTEROL 0.083% (NEB) 2.5 MG/3 ML AMP HHN (17:00)
[2018-08-05] MEDS ORDERED: LABETALOL HCL 20MG INJ IV (17:00)
[2018-08-05] MEDS ORDERED: KETOROLAC 30 MG INJ IV (17:00)
[2018-08-05] MEDS ORDERED: hydrALAzine 20 MG INJ IV (17:00)
[2018-08-05] MEDS: ATORVASTATIN 80 MG TAB PO (21:46)
[2018-08-05] MEDS: HEPARIN 5,000 UNIT/1 ML VIAL SC (22:00)
[2018-08-05 22:59] LABS: POTASSIUM 4.3 mmol/L (3.5-5.1)
[2018-08-05 23:15] LABS: TROPONIN-I 0.027 ng/ml (0.000-0.120)
[2018-08-06] MEDS: ACCU-CHEK XX (02:00)
[2018-08-06] MEDS: HYDROmorphONE 0.5 MG/0.5 ML SYG IV ×4 (04:01→22:15)
[2018-08-06] MEDS: DIPHENHYDRAMINE 50 MG INJ IV ×4 (04:23→23:45)
[2018-08-06] MEDS: HEPARIN 5,000 UNIT/1 ML VIAL SC ×3 (06:00→21:26)
[2018-08-06] MEDS: PIPER-TAZO 3.375 GM IV (PMX) 100 ML IVPB ×4 (06:00→18:10)
[2018-08-06 07:41] LABS: ADD MAN DIFF? NO
[2018-08-06 07:52] LABS: BASOPHIL # 0.1 10^3/ul (0.0-0.1); BASOPHILS % 0.8 % (0.0-2.0); EOSINOPHILS # 0.9 10^3/ul (0.0-0.5); EOSINOPHILS % 7.4 % (0.0-7.0); HEMATOCRIT 44.5 % (42.0-52.0); HEMOGLOBIN 14.1 g/dl (14.0-18.0); LYMPHOCYTES # 2.2 10^3/ul (0.8-2.9); LYMPHOCYTES % 17.2 % (15.0-51.0); MEAN CORPUSCULAR HEMOGLOBIN 28.6 pg (29.0-33.0); MEAN CORPUSCULAR HGB CONC 31.7 g/dl (32.0-37.0); MEAN CORPUSCULAR VOLUME 90.3 fl (82.0-101.0); MEAN PLATELET VOLUME 11.3 fl (7.4-10.4); MONOCYTE # 0.9 10^3/ul (0.3-0.9); MONOCYTES % 6.8 % (0.0-11.0); NEUTROPHIL # 8.5 10^3/ul (1.6-7.5); NEUTROPHILS % 67.5 % (39.0-77.0); PLATELET COUNT 279 10^3/UL (140-415); RED BLOOD COUNT 4.93 10^6/ul (4.70-6.10); RED CELL DISTRIBUTION WIDTH 14.5 % (11.5-14.5)
[2018-08-06 07:52] LABS: WHITE BLOOD COUNT 12.6 10^3/ul (4.8-10.8)
[2018-08-06] MEDS: VANCOMYCIN 1 GM in 250 ML IVPB ×2 (08:00→09:24)
[2018-08-06] MEDS: INSULIN ASPART [NOVOLOG] 3 ML PEN SC ×7 (08:00→20:48)
[2018-08-06 08:06] LABS: ANION GAP 7 (5-13); BLOOD UREA NITROGEN 22 mg/dl (7-20); CALCIUM 8.8 mg/dl (8.4-10.2); CARBON DIOXIDE 27 mmol/L (21-31); CHLORIDE 107 mmol/L (97-110); CREATININE 1.16 mg/dl (0.61-1.24); Estimated GFR > 60 mL/min (>60); GLUCOSE 122 mg/dl (70-220); POTASSIUM 4.2 mmol/L (3.5-5.1); SODIUM 141 mmol/L (135-144)
[2018-08-06 08:09] LABS: PHOSPHORUS 3.6 mg/dl (2.5-4.9)
[2018-08-06 08:40] LABS: VANCOMYCIN,TROUGH 6.4 ug/ml (10.0-20.0)
[2018-08-06] MEDS: CALAMINE/PRAMOXINE LOT 180 ML BTL TOP ×4 (09:00→21:00)
[2018-08-06] MEDS: ASPIRIN 81 MG TAB PO (09:21)
[2018-08-06] MEDS: GABAPENTIN 300 MG CAP PO ×3 (09:21→20:48)
[2018-08-06] MEDS: CLOPIDOGREL 75 MG TAB PO (09:21)
[2018-08-06] MEDS: ISOSORBIDE DINITRATE 10 MG TAB PO ×3 (09:21→20:44)
[2018-08-06] MEDS: AMLODIPINE 5 MG TAB PO (09:22)
[2018-08-06] MEDS: LISINOPRIL 20 MG TAB PO (09:22)
[2018-08-06] MEDS: INSULIN GLARGINE [LANTus] (100 UNITS/ML) SYG SC (09:46)
[2018-08-06] MEDS: OXYCODONE/ACETAMINOPHEN (5/325) TAB PO ×2 (10:50→21:34)
[2018-08-06 11:26] LABS: CREATINE KINASE 126 IU/L (23-200)
[2018-08-06 11:38] LABS: CK INDEX 1.7; TROPONIN-I 0.024 ng/ml (0.000-0.120)
[2018-08-06] MEDS ORDERED: DEXTROSE 50% 50 ML SYRINGE IV ×2 (20:00)
[2018-08-06] MEDS ORDERED: GLUCAGON 1 MG INJ IM (20:00)
[2018-08-06] MEDS ORDERED: GLUCOSE GEL 15 GRAM TUBE PO ×2 (20:00)
[2018-08-06] MEDS ORDERED: VANCOMYCIN HCL 1.5 GM in SOD CHLORIDE 0.9% 250 ML IVPB (20:00)
[2018-08-06] MEDS ORDERED: GLUCOSE GEL 15 GRAM TUBE BUCCAL (20:00)
[2018-08-06] MEDS: ATORVASTATIN 80 MG TAB PO (20:45)
[2018-08-06] MEDS: CEFTRIAXONE 2 GM/NS 50 ML IVPB (20:45)
[2018-08-07] MEDS: ACCU-CHEK XX (02:00)
[2018-08-07] MEDS: HYDROmorphONE 0.5 MG/0.5 ML SYG IV ×3 (02:25→10:26)
[2018-08-07] MEDS: OXYCODONE/ACETAMINOPHEN (5/325) TAB PO ×2 (04:49→12:21)
[2018-08-07] MEDS: DIPHENHYDRAMINE 50 MG INJ IV ×3 (04:50→13:13)
[2018-08-07] MEDS: HEPARIN 5,000 UNIT/1 ML VIAL SC ×2 (05:48→13:28)
[2018-08-07] MEDS: INSULIN ASPART [NOVOLOG] 3 ML PEN SC ×4 (08:38→13:26)
[2018-08-07] MEDS: LISINOPRIL 20 MG TAB PO (08:40)
[2018-08-07] MEDS: CLOPIDOGREL 75 MG TAB PO (08:40)
[2018-08-07] MEDS: ASPIRIN 81 MG TAB PO (08:41)
[2018-08-07] MEDS: ISOSORBIDE DINITRATE 10 MG TAB PO ×2 (08:42→13:28)
[2018-08-07] MEDS: AMLODIPINE 5 MG TAB PO (08:42)
[2018-08-07] MEDS: GABAPENTIN 300 MG CAP PO ×2 (08:43→13:28)
[2018-08-07] MEDS: CALAMINE/PRAMOXINE LOT 180 ML BTL TOP ×2 (08:57→13:00)
[2018-08-07] MEDS: INSULIN GLARGINE [LANTus] (100 UNITS/ML) SYG SC (08:57)
[2018-08-07 10:14] LABS: ADD MAN DIFF? NO
[2018-08-07 10:18] LABS: BASOPHIL # 0.1 10^3/ul (0.0-0.1); BASOPHILS % 0.8 % (0.0-2.0); EOSINOPHILS # 1.2 10^3/ul (0.0-0.5); EOSINOPHILS % 12.6 % (0.0-7.0); HEMATOCRIT 42.6 % (42.0-52.0); HEMOGLOBIN 13.4 g/dl (14.0-18.0); LYMPHOCYTES # 2.5 10^3/ul (0.8-2.9); LYMPHOCYTES % 26.7 % (15.0-51.0); MEAN CORPUSCULAR HEMOGLOBIN 28.6 pg (29.0-33.0); MEAN CORPUSCULAR HGB CONC 31.5 g/dl (32.0-37.0); MEAN PLATELET VOLUME 11.2 fl (7.4-10.4); MONOCYTE # 0.8 10^3/ul (0.3-0.9); MONOCYTES % 8.9 % (0.0-11.0); NEUTROPHIL # 4.7 10^3/ul (1.6-7.5); NEUTROPHILS % 50.8 % (39.0-77.0); PLATELET COUNT 259 10^3/UL (140-415); RED BLOOD COUNT 4.68 10^6/ul (4.70-6.10); RED CELL DISTRIBUTION WIDTH 14.3 % (11.5-14.5)
[2018-08-07 10:18] LABS: WHITE BLOOD COUNT 9.3 10^3/ul (4.8-10.8)
[2018-08-07 10:46] LABS: PHOSPHORUS 3.2 mg/dl (2.5-4.9)
[2018-08-07 10:46] LABS: ANION GAP 5 (5-13); BLOOD UREA NITROGEN 21 mg/dl (7-20); CALCIUM 8.8 mg/dl (8.4-10.2); CARBON DIOXIDE 29 mmol/L (21-31); CHLORIDE 106 mmol/L (97-110); CREATININE 1.13 mg/dl (0.61-1.24); Estimated GFR > 60 mL/min (>60); GLUCOSE 171 mg/dl (70-220); POTASSIUM 4.1 mmol/L (3.5-5.1); SODIUM 140 mmol/L (135-144)
== END 2018-08-07 14:40 | disposition home health service (06) | DRG 623 ==
LOC: E/R 14:35 → 2NE 17:20
PROVIDERS: Internal Medicine
PROC: 0HRKX74 Replacement of Right Lower Leg Skin with Autologous Tissue Substitute, Partial Thickness, External Approach (ICD-10-PCS; principal; 2018-08-05 15:00)
PROC: 0HBHXZZ Excision of Right Upper Leg Skin, External Approach (ICD-10-PCS; 2018-08-05 15:00)
DX: E11.622 Type 2 diabetes mellitus with other skin ulcer (principal); L03.115 Cellulitis of right lower limb; Z68.41 Body mass index [BMI] 40.0-44.9, adult; L97.819 Non-pressure chronic ulcer of other part of right lower leg with unspecified severity; E11.65 Type 2 diabetes mellitus with hyperglycemia; F17.200 Nicotine dependence, unspecified, uncomplicated; N17.9 Acute kidney failure, unspecified; G89.29 Other chronic pain; I25.10 Atherosclerotic heart disease of native coronary artery without angina pectoris; E11.51 Type 2 diabetes mellitus with diabetic peripheral angiopathy without gangrene; E66.01 Morbid (severe) obesity due to excess calories; E78.00 Pure hypercholesterolemia, unspecified; G47.33 Obstructive sleep apnea (adult) (pediatric); N18.9 Chronic kidney disease, unspecified; E11.22 Type 2 diabetes mellitus with diabetic chronic kidney disease; I12.9 Hypertensive chronic kidney disease with stage 1 through stage 4 chronic kidney disease, or unspecified chronic kidney disease; Z79.4 Long term (current) use of insulin; Z79.82 Long term (current) use of aspirin; Z95.5 Presence of coronary angioplasty implant and graft; Z79.02 Long term (current) use of antithrombotics/antiplatelets; Z83.3 Family history of diabetes mellitus
CPT/HCPCS: 36415; 71045; 80048; 80053; 80202; 82550; 82553; 82962; 83036; 83605; 83735; 84100; 84132; 84484; 85025; 85610; 85730; 87040-91; 87070; 87075; 87102; 93005; 96374; 96375; 99285-25

== ENCOUNTER 2018-10-13 14:29 | Day surgery (SDC) | payer OTHER ==
[2018-10-13] MEDS ORDERED: CEFAZOLIN 2 GM/50 ML (PMX) 50 ML IVPB (15:00)
[2018-10-13] MEDS ORDERED: HYDROmorphONE 0.5 MG/0.5 ML SYG IV (15:41)
[2018-10-13] MEDS: ONDANSETRON 4 MG INJ IV (16:04)
[2018-10-13] MEDS: HYDROmorphONE 1 MG/ML SYG IV (16:04)
[2018-10-13] MEDS ORDERED: MINERAL OIL LIGHT 10 ML VIAL ×2 (16:55→18:20)
[2018-10-13] MEDS: POLYMYXIN/BACITRACIN 1L IRRIG (17:24)
[2018-10-13] MEDS: LIDOCAINE 1% (MPF) 30 ML INJ (17:25)
[2018-10-13] MEDS: LIDOCAINE 1%/EPI 30 ML INJ (17:25)
[2018-10-13] MEDS: SOD CHLORIDE 0.9% 1,000 ML IV (17:36)
[2018-10-13] MEDS ORDERED: MIDAZOLAM 1 MG/ML 2 ML INJ (17:53)
[2018-10-13] MEDS ORDERED: PROPOFOL 200 MG INJ (17:53)
[2018-10-13] MEDS ORDERED: CEFAZOLIN 1 GM INJ (17:53)
[2018-10-13] MEDS ORDERED: LABETALOL HCL 20MG INJ IV (18:00)
[2018-10-13] MEDS ORDERED: HYDROmorphONE 1 MG/5 ML IV SYRINGE IV (18:00)
[2018-10-13] MEDS ORDERED: hydrALAzine 20 MG INJ IV (18:00)
[2018-10-13] MEDS ORDERED: ONDANSETRON 4 MG INJ IV ×2 (18:00→19:00)
[2018-10-13] MEDS ORDERED: LIDOCAINE 1%/EPI 30 ML INJ (18:20)
[2018-10-13] MEDS: BUPIVACAINE 0.5% 30 ML VIAL INJ (18:25)
[2018-10-13] MEDS: HYDROmorphONE 1 MG/5 ML IV SYRINGE IV (19:36)
== END 2018-10-13 20:19 | disposition home or self-care (01) ==
LOC: SDS 14:29
DX: L97.319 Non-pressure chronic ulcer of right ankle with unspecified severity (principal); E11.9 Type 2 diabetes mellitus without complications; I10 Essential (primary) hypertension; I25.10 Atherosclerotic heart disease of native coronary artery without angina pectoris; I25.2 Old myocardial infarction; Z86.73 Personal history of transient ischemic attack (TIA), and cerebral infarction without residual deficits; Z79.82 Long term (current) use of aspirin; Z79.4 Long term (current) use of insulin
CPT/HCPCS: 15100; 82962